=== PATIENT | female | born 1945 | race Caucasian/White ===

== ENCOUNTER 2020-01-05 07:47 | Outpatient (CLI) | payer OTHER, SELFPAY ==
--- NOTE | ~2020-01-05 | DEXA_ITS ---
Bone Density Report Name: Yomaira Ware Age: 74 Sex: Female Ethnicity: White Date of : 1945 Indication: postmenopausal; height loss; cancer; hysterectomy; Referring Provider: EWA BUCKLEY Study: Bone densitometry was performed. Exam Date: January 05, 2020 Accession number: [id number] Bone Density: Region BMD T-score Z-score Classification AP Spine (L1, L2) 1.084 1.0 3.1 Normal Femoral Neck (Left) 0.627 -2.0 -0.1 Osteopenia Total Hip (Left) 0.800 -1.2 0.5 Osteopenia Total Hip Bilateral Avg 0.789 -1.3 0.4 Osteopenia Femoral Neck (Right) 0.593 -2.3 -0.4 Osteopenia Total Hip (Right) 0.776 -1.4 0.3 Osteopenia World Health Organization criteria for BMD impression classify patients as: Normal (T-score at or above -1.0), Osteopenia (T-score between -1.0 and -2.5), or Osteoporosis (T-score at or below -2.5). 10-year Fracture Risk(1): Major Osteoporotic Fracture 13% Hip Fracture 3.2% Reported Risk Factors: [place] (), Neck BMD=0.593, BMI=31.9 (1) FRAX(R) Version 3.08. Fracture probability calculated for an untreated patient. Fracture probability may be lower if the patient has received treatment. Clinical Information Provided by Patient: Has used the following medications: Vitamin D, Calcium Has the following medical conditions: Cancer, Hysterectomy Patient maximum height was 65 Menopause Age: 52 No regular weight bearing exercise Drinks caffeinated beverages Onset of menses at age 18 Number of children 2 Impression: The patient has low bone mass, based on the Right Femoral Neck T-score. The patient has an estimated ten-year risk of hip fracture of 3.2% and an estimated ten-year risk of major fracture of 13%, based on the WHO FRAX algorithm. Discussion: BONE DENSITY IS LOW AT ONE OR MORE SKELETAL SITES. THE PATIENT'S BMD AND CLINICAL RISK FACTORS CONTRIBUTE TO THIS PATIENT'S INCREASED RISK OF FRACTURE. This patient's lowest T-score is low at one or more skeletal sites. It meets the World Health Organization's (WHO) criteria for ?low bone mass? (T-score between -1.0 and -2.5). The patient's 10-year risk of hip fracture as calculated by FRAX exceeds the threshold where pharmacological therapy is recommended by the National Osteoporosis Foundation (NOF). However, all treatment decisions require clinical judgment and consideration of individual patient factors, including patient preferences, comorbidities, previous drug use, risk factors not captured in the FRAX model (e.g., frailty, falls, vitamin D deficiency, increased bone turnover, interval significant decline in bone density) and possible under or overestimation of fracture risk by FRAX. The patient should follow a healthful lifestyle (good nutrition with adequate calcium and vitamin D, and appropriate weight-bearing exercise). Follow-Up
== END 2020-01-05 07:48 | disposition home or self-care (01) ==
LOC: ANHIMG 07:53
PROVIDERS: PCP Internal Medicine; Visit Provider Internal Medicine
DX: M85.852 Other specified disorders of bone density and structure, left thigh (principal); M85.851 Other specified disorders of bone density and structure, right thigh
CPT/HCPCS: 77080

== ENCOUNTER 2020-02-18 15:40 | IRF | payer OTHER, SELFPAY ==
--- NOTE | ~2020-02-18 | XR_ITS ---
XR skull <4V 02/21/2020 08:14 Indication: Recent skull surgery. Procedure: 3 views of the skull Comparison: No prior studies for comparison. Findings: There are postsurgical changes consistent with right parietal craniotomy. There is overlyin g staple line. No other skull defects are identified. No acute osseous abnormality. Impression: 1: Postsurgical changes consistent with previous right parietal craniotomy with overlying staple line . Reviewed, dictated and finalized at location B. Impression: 1: Postsurgical changes consistent with previous right parietal craniotomy with overlying staple line.
--- NOTE | 2020-02-18 15:55 | PC.NURSE ---
This patient, Yomaira Ware, was admitted to [facility] Room 222-02. Patient/family oriented to hospital policies and general routines including ID bracelet, bed and alarms, visiting hours, pain management, procedures, bathroom and other care routines, personal items, smoking policy, room service/diet, and visiting hours. Valuables list has been completed. Information on how to activate the Rapid Response Team has been discussed. Patient/Family are encouraged to report perceived risks to care and to ask questions if they do not understand what they are told or what they should do.
[2020-02-18 16:00] VITALS: BP 156/64; PULSE 65; RESP 20; TEMP 36.2; O2SAT 100; BMI 30.9
[2020-02-18] MEDS: ACETAMINOPHEN 325 MG TABLET 650 MG PO (19:42)
[2020-02-18] MEDS: CEPHALEXIN 500 MG CAPSULE PO (19:42)
[2020-02-18] MEDS: DEXAMETHASONE 4 MG TABLET PO (19:43)
[2020-02-18] MEDS: levETIRAcetam 500 MG TABLET PO (19:43)
[2020-02-18 20:57] VITALS: BP 145/74; PULSE 55; RESP 18; TEMP 35.9; O2SAT 90
[2020-02-19 05:37] LABS: Basophils Percent Auto 0.1 % (0.2-1.2); Hematocrit 37.1 % (37.0-47.0); Hemoglobin 12.6 g/dL (12.0-15.0); Immature Granulocyte Absolute 0.13 K/mm3 (0.00-0.031); Immature Granulocyte Percent A 1.5 % (0-0.5); Lymphocytes Absolute Auto 0.64 K/mm3 (0.9-3.2); Lymphocytes Percent Auto 7.2 % (18.3-44.2); Mean Corpuscular Hemoglobin 31.1 pg (26-34); Mean Corpuscular Volume 91.6 fl (80-100); Mean Platelet Volume 10.9 fl (7.4-10.4); Monocytes Absolute Auto 0.4 K/mm3 (0.1-0.6); Monocytes Percent Auto 4.6 % (2.6-8.5); Neutrophils Absolute Auto 7.7 K/mm3 (1.3-6.7); Neutrophils Percent Auto 86.6 % (45.5-73.1); Platelet Count Result 187 k/mm3 (150-375); Red Blood Count 4.05 M/mm3 (4.2-5.4); Red Cell Distribution Width 13.6 % (11.5-14.5); White Blood Count 8.9 K/mm3 (4.5-10.0)
[2020-02-19 05:40] VITALS: BP 120/57; PULSE 61; RESP 18; TEMP 36.4; O2SAT 96
[2020-02-19 05:54] LABS: Anion Gap 3 mmol/L (8-16); Blood Urea Nitrogen 19 mg/dL (7-17); Carbon Dioxide 30 mmol/L (22-30); Chloride 98 mmol/L (98-107); Estimated CRCL calculation 107 ml/min; Estimated Glomerular Filt Rate > 60; Glucose 109 mg/dL (65-105); Potassium 4.3 mmol/L (3.4-5.0); Sodium 131 mmol/L (137-145)
[2020-02-19] MEDS: ASCORBIC ACID 250 MG TABLET PO (08:27)
[2020-02-19] MEDS: DEXAMETHASONE 4 MG TABLET PO ×4 (08:27→20:04)
[2020-02-19] MEDS: levETIRAcetam 500 MG TABLET PO ×2 (08:27→20:04)
[2020-02-19] MEDS: CHOLECALCIFEROL 1,000 UNITS TABLET 1000 UNITS PO (08:27)
[2020-02-19] MEDS: CEPHALEXIN 500 MG CAPSULE PO ×4 (08:27→20:04)
--- NOTE | 2020-02-19 13:35 | WPDREHABHP ---
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 On February 15, 2020 she underwent a right parietal MRI guided is stereotactic craniotomy for resection of the lesion. She was placed on Decadron and Keppra for seizure prophylaxis. Postoperatively the patient has experienced acute postoperative pain, acute blood loss anemia leukocytosis, and weakness to the left biceps, triceps, and intrinsic hand muscles. The wound dressing is clean, dry, and intact. The wound is flat, and kristine intact, with no significant active drainage. Forehead and posterior parietal occipital Beasley pin hole sites without hematoma, erythema, edema, or drainage. The surgical wound is to remain open to air and the kristine are to stay in place for the next 7 to 10 days. Her pain is being managed with oral pain medications and is currently minimal, and acute blood loss anemia is stable with a hemoglobin of 14.2 , leukocytosis is related to steroid administration, and weakness will be address with intensive physical and occupational therapy. She was discharged to rehab on oral Keppra and Decadron. She will not be discharged on chemical DVT prophylaxis in the setting of a brain surgery. Therapy was initiated at the acute care facility and the patient transferred to us from [facility] on February 18, 2020. The patient has not traveled outside the [place] or head contact with someone who is ill that has traveled outside the [place] in the past 21 days. The patient has not traveled to an area of the [place] that he is experiencing known transmission of the Coronavirus and has not had close personal contact with anyone that has. The patient does not have a fever. The patient is not experiencing lower respiratory illness symptom. COVID test negative on February 13, 2020 FALLS OR SURGERIES: The patient has had major surgeries in the 100 days prior to admission. They had no falls in the past year. They had no falls with injury in the past year. PAST MEDICAL HISTORY: [] lung cancer, pulmonary emphysema, osteoporosis, brain cancer, hard of hearing and hypertension. PAST SURGICAL HISTORY: [] Hysterectomy and stereotactic radio surgery SOCIAL HISTORY: [] the patient is and retired. She quit smoking in 1996. She has 1 alcoholic drink per week, and has no illicit drug use. The patient lives independently in a 1 level house with 5 steps to enter. Patient was completely independent at baseline with no assistive device. The patient reports having family, friends, and neighbors to assist her following rehab if necessary FAMILY HISTORY: [] cervical cancer, colon cancer, and diabetes mellitus PRIOR LEVEL OF FUNCTION: Eating was [INDEPENDENT] Oral Care was [INDEPENDENT] Toileting Hygiene was [INDEPENDENT] Shower/Bathing was [INDEPENDENT] Upper Body Dressing was [INDEPENDENT] Lower Body Dressing was [INDEPENDENT] Donning/[place] Footwear was [INDEPENDENT] Rolling Left and Right was [INDEPENDENT] Sit to Lying was [INDEPENDENT] Lying to Sitting was [INDEPENDENT] Sit to Stand was [INDEPENDENT] Bed to Chair Transfers was [INDEPENDENT] Toilet Transfers was [INDEPENDENT] the patient was walking independently previously and she was able to compl
[2020-02-19 14:00] VITALS: BP 119/69; PULSE 68; RESP 16; TEMP 36.3; O2SAT 98
--- NOTE | 2020-02-19 14:01 | WPDREHABHP ---
H&P: HPI History of Present Illness Date/Time: 02/19/20 14:01 Chief complaint: Brain Dysfunction/ Non Traumatic Narrative: Yomaira Ware is a 74 year old female [facility] Social History Social History Smoking status: Former smoker Smoking end date: 06/09/97 Alcohol intake: never Substance use: never Substance use type: does not use Gender identity (if verbalized by the patient): Female Spiritual care concerns: No Meds Home Medications and Allergies Home Medications Medication Instructions Recorded Confirmed Type fluticasone propionate 50 2 spray NASAL DAILY #54.6 ml 12/30/19 12/30/19 Rx mcg/actuation nasal spray,suspension alendronate 70 mg tablet 70 mg PO WEEKLY #14 tablet 01/12/20 01/12/20 Rx Vitamin D3 Complete 02/18/20 History acetaminophen 650 mg PO Q4H PRN 02/18/20 02/18/20 History ascorbic acid (vitamin C) [Vitamin 100 mg PO DAILY 02/18/20 02/18/20 History C] cephalexin 500 mg PO QID 02/18/20 02/18/20 History cholecalciferol (vitamin D3) 25 mcg PO DAILY 02/18/20 02/18/20 History dexamethasone 4 mg PO QID 02/18/20 02/18/20 History hydrocodone-acetaminophen [[place]] 1 tablet PO Q4H PRN 02/18/20 02/18/20 History levetiracetam 500 mg PO BID 02/18/20 02/18/20 History Allergies Allergy/AdvReac Type Severity Reaction Status Date / Time No Known Allergies AdvReac Mild Verified 01/12/20 08:55 Vital Signs Vital Signs - 24 hr 02/18/20 16:00 02/18/20 20:57 02/19/20 05:40 Temperature 36.2 C L 35.9 C L 36.4 C L Pulse Rate 65 55 L 61 Respiratory Rate 20 18 18 Blood Pressure 156/64 H 145/74 H 120/57 L Pulse Oximetry 100 90 96 Exam Narrative Exam Narrative: examination revealed her to be awake alert cooperative in no obvious acute distress. She was able to relate to the physician follow the instruction appropriately and was not in any obvious discomfort. Head was normocephalic with no cranial bruit. Ear nose throat examination was normal. Neck was supple with no stiffness full range of motion. No cervical bruit no thyromegaly and no lymphadenopathy the wound was clear heart was regular with no murmur lungs were clear to auscultation with no rhonchi or crepitation abdomen was soft nontender with no organomegaly normal bowel sounds neurologically she was awake alert cooperative in no obvious acute distress was able to follow the verbal commands appropriately his speech was not dysphasic no dysarthric no dysphonic pupils were round regular reacting to light equally feels the vision were full extraocular moves are full face symmetrical tongue midline motor examination revealed her to have decreased strength in upper and lower extremities with brisk reflexes questionably upgoing plantar responses there was no evidence of ataxia or dysmetria on [id number]-to-finger she had difficulties in performing heel to knee to mg H&P: Results Labs Labs: Short CBC 02/19/20 Range/Units 05:08 WBC 8.9 (4.5-10.0) K/mm3 Hgb 12.6 (12.0-15.0) g/dL Hct 37.1 (37.0-47.0) % Plt Count 187 (150-375) k/mm3 [facility] 02/19/20 05:08 Sodium 131 L Potassium 4.3 Chloride 98 Carbon Dioxide 30 BUN 19 H Creatinine 0.40 L Glucose 109 H Calcium 8.0 L
[2020-02-19 20:47] VITALS: BP 140/76; PULSE 65; RESP 18; TEMP 35.8; O2SAT 97
[2020-02-20 06:00] VITALS: BP 143/81; PULSE 60; RESP 18; TEMP 35.8; O2SAT 99
[2020-02-20] MEDS: DEXAMETHASONE 4 MG TABLET PO ×4 (08:40→21:02)
[2020-02-20] MEDS: CEPHALEXIN 500 MG CAPSULE PO ×4 (08:40→21:02)
[2020-02-20] MEDS: ASCORBIC ACID 250 MG TABLET PO (08:40)
[2020-02-20] MEDS: levETIRAcetam 500 MG TABLET PO ×2 (08:41→21:01)
[2020-02-20] MEDS: CHOLECALCIFEROL 1,000 UNITS TABLET 1000 UNITS PO (08:41)
--- NOTE | 2020-02-20 12:05 | WPDNEURORHBP ---
Subjective Date/time seen: 02/20/20 12:05 74 years old lady admitted with known traumatic brain dysfunction in addition to the history of no alcohol intake substance abuse being a former smoker and history of metastatic carcinoma of the lung for which she has undergone craniectomy in February of 2020 she is being maintained on Keppra for the seizure prophylaxis Review of Systems Review of Systems: All systems reviewed & are unremarkable except as noted in HPI and below Functional Status Ambulation Ability Ability to Ambulate 10 Feet: Minimum Assistance X 1 Ability to Ambulate 50 Feet With 2 Turns: Contact Guard Ability to Ambulate 150 Feet: Contact Guard Ambulation Assistive Devices: Walker, Wheeled Transfers Ability Ability to Transfer In/Out of Chair: Contact Guard Exam Narrative: Exam Narrative: examination reveals her to be awake alert cooperative sitting in chair comfortable with normal and full speech heart regular with no murmur lungs clear neurological is she is awake alert able to relate to the physician has no specific complaints reflexes are unchanged and so as the general physical and neurological examination she is involved in the physical therapy and will be continued as such Objective Data Vital Signs Vital Signs: Vital Signs - 24 hr 02/19/20 14:00 02/19/20 20:47 02/20/20 06:00 Temperature 36.3 C L 35.8 C L 35.8 C L Pulse Rate 68 65 60 Respiratory Rate 16 18 18 Blood Pressure 119/69 140/76 143/81 H Pulse Oximetry 98 97 99 Intake/Output Intake/Output: Intake & Output 02/17/20 02/18/20 02/19/20 02/20/20 23:59 23:59 23:59 23:59 Intake Total 240 680 960 Balance 240 680 960 Meds/Results Medications: Active Medications Generic Name Dose Route Start Last Admin Trade Name Freq PRN Reason Stop Dose Admin Acetaminophen 650 mg 02/18/20 17:09 02/18/20 19:42 Tylenol Tablet PO 650 mg Q4H PRN Administration Pain (Scale Score 1-3) Hydrocodone Bitart/Acetaminophen 1 tab 02/18/20 17:09 02/19/20 20:04 [place] 5-325 Mg PO 1 tab Q4H PRN Administration Pain (Scale Score 7-10) Ascorbic Acid 250 mg 02/19/20 09:00 02/20/20 08:40 Vitamin C PO 03/20/20 09:01 250 mg DAILY CHRISTOPHER Administration Cephalexin HCl 500 mg 02/18/20 21:00 02/20/20 08:40 Keflex Capsule PO 02/25/20 21:01 500 mg QID CHRISTOPHER Administration Dexamethasone 4 mg 02/18/20 21:00 02/20/20 08:40 Dexamethasone Po PO 02/20/20 21:01 4 mg [facility] CHRISTOPHER Administration Fluticasone Propionate 2 spray 02/18/20 17:15 Flonase 0.05% Nasal [place] NASAL QAM PRN Nasal Congestion Levetiracetam 500 mg 02/18/20 21:00 02/20/20 08:41 Keppra Tablet PO 500 mg Q12HR CHRISTOPHER Administration Vitamin D 1,000 units 02/19/20 09:00 02/20/20 08:41 Vitamin D PO 1,000 units DAILY CHRISTOPHER Administration Progress Note: A&P Assessment and Plan (1) BPPV (benign paroxysmal positional vertigo): Code(s): H81.10 - Benign paroxysmal vertigo, unspecified ear Status: Acute (2) Colon cancer screening: Code(s): Z12.11 - Encounter for screening for malignant neoplasm of colon Status: Acute (3) Post-menopausal: Code(s): Z78.0 - Asymptomatic menopausal state Status: Acute (4) Cerebrovascular accident (CVA): Code(s): I63.9 - Cerebral infarction, unspecified Status: Acute (5) Former tobacco use: Code(s): Z87.891 - Personal history of nicotine dependence Status: Acute (6) Hearing loss: Qualifiers: Hearing loss type: unspecified Laterality: right Qualified Code(s): H91.91 - Unspecified hearing loss, right ear Code(s): H91.90 - Unspecified hearing loss, unspecified ear Status: Acute (7) Hx of cervical cancer: Code(s): Z85.41 - Personal history of malignant neoplasm of cervix uteri Status: Acute (8) Hx of colonic polyps: Code(s): Z86.010 - Personal history of colonic polyps Status
[2020-02-20 14:00] VITALS: BP 128/65; PULSE 70; RESP 16; TEMP 36.4; O2SAT 97
--- NOTE | 2020-02-20 17:07 | PC.NURSE ---
Patient c/o some numbness in left wrist and left foot/leg, states not lasting; appears very transient. Dr. Pagan notified. No visual disturbances or pain involved and stated she was having this before the surgery happened. Will continue to monitor.
--- NOTE | 2020-02-20 20:00 | PC.NURSE ---
called and spoke to Dr Sevilla regarding the dexamethasone order. instructions stated x 9 days on mar as well as in chart. mar was showing medication to complete after a total of [address] Sevilla wanted medication continued for 9 days per discharge instructions from previous hospital.
[2020-02-20 22:00] VITALS: BP 133/76; PULSE 70; RESP 20; TEMP 36.3; O2SAT 99
[2020-02-21 05:45] VITALS: BP 140/65; PULSE 57; RESP 20; TEMP 36.3; O2SAT 98
[2020-02-21] MEDS: DEXAMETHASONE 4 MG TABLET PO ×4 (08:23→20:04)
[2020-02-21] MEDS: ASCORBIC ACID 250 MG TABLET PO (08:24)
[2020-02-21] MEDS: CEPHALEXIN 500 MG CAPSULE PO ×4 (08:24→20:03)
[2020-02-21] MEDS: levETIRAcetam 500 MG TABLET PO ×2 (08:24→20:04)
[2020-02-21] MEDS: CHOLECALCIFEROL 1,000 UNITS TABLET 1000 UNITS PO (08:24)
--- NOTE | 2020-02-21 10:11 | P.PNNERE_ITS ---
Subjective Date/time seen: 02/21/20 10:11 74 years old lady with traumatic brain dysfunction and metastatic carcinoma of the lung requiring craniectomy also being maintained on Keppra for the seizure prophylaxis has no specific complaints today slept well pain is under control mood is good Review of Systems Review of Systems: All systems reviewed & are unremarkable except as noted in HPI and below Functional Status Ambulation Ability Ability to Ambulate 10 Feet: Standby Assistance Ability to Ambulate 50 Feet With 2 Turns: Standby Assistance Ability to Ambulate 150 Feet: Contact Guard Ambulation Assistive Devices: Walker, Wheeled Transfers Ability Ability to Transfer In/Out of Chair: Standby Assistance Exam Narrative: Exam Narrative: examination reveals her to be awake alert again cooperative very pleasant comfortable his speech nor dysphasic no dysarthric no dysphonic heart regular lungs clear neurological examination essentially unchanged she is walking down the coy without any discomfort Objective Data Vital Signs Vital Signs: Vital Signs - 24 hr 02/20/20 14:00 02/20/20 22:00 02/21/20 05:45 Temperature 36.4 C L 36.3 C L 36.3 C L Pulse Rate 70 70 57 L Respiratory Rate 16 20 20 Blood Pressure 128/65 133/76 140/65 Pulse Oximetry 97 99 98 Intake/Output Intake/Output: Intake & Output 02/18/20 02/19/20 02/20/20 02/21/20 23:59 23:59 23:59 23:59 Intake Total 404 400 2520 480 Balance 397 060 4046 480 Meds/Results Medications: Active Medications Generic Name Dose Route Start Last Admin Trade Name Freq PRN Reason Stop Dose Admin Acetaminophen 650 mg 02/18/20 17:09 02/18/20 19:42 Tylenol Tablet PO 650 mg Q4H PRN Administration Pain (Scale Score 1-3) Hydrocodone Bitart/Acetaminophen 1 tab 02/18/20 17:09 02/19/20 20:04 [place] 5-325 Mg PO 1 tab Q4H PRN Administration Pain (Scale Score 7-10) Ascorbic Acid 250 mg 02/19/20 09:00 02/21/20 08:24 Vitamin C PO 03/20/20 09:01 250 mg DAILY CHRISTOPHER Administration Cephalexin HCl 500 mg 02/18/20 21:00 02/21/20 08:24 Keflex Capsule PO 02/25/20 21:01 500 mg QID CHRISTOPHER Administration Dexamethasone 4 mg 02/21/20 08:00 02/21/20 08:23 Dexamethasone Po PO 02/27/20 17:01 4 mg [facility] CHRISTOPHER Administration Fluticasone Propionate 2 spray 02/18/20 17:15 Flonase 0.05% Nasal [place] NASAL QAM PRN Nasal Congestion Levetiracetam 500 mg 02/18/20 21:00 02/21/20 08:24 Keppra Tablet PO 500 mg Q12HR CHRISTOPHER Administration Vitamin D 1,000 units 02/19/20 09:00 02/21/20 08:24 Vitamin D PO 1,000 units DAILY CHRISTOPHER Administration Radiology Results: ITS Impressions Skull X-Ray 02/21/20 08:47 Impression: 1: Postsurgical changes consistent with previous right parietal craniotomy with overlying staple line. Progress Note: A&P Additional Plan continue the treatment as such
--- NOTE | 2020-02-21 11:57 | RPD ---
INDIVIDUALIZED PLAN OF CARE FOR Yomaira Ware Brief Synthesis of Pre-Admission Screen, Post-Admission Evaluation and Therapy Evaluations: The patient presents to rehab with a non-traumatic brain dysfunction of a right parietal brain lesion. Comorbidities include acute blood loss anemia, acute postoperative pain, hypertension, constipation, osteoporosis, lung cancer, and pulmonary emphysema. The complexity of the patient's medical management, nursing, and therapy needs require an inpatient rehab hospital stay with a physician-led interdisciplinary team approach. The patient?s needs will be best met in an intensive program vs. at a lower level of care. The patient requires physician services for medical oversight, management of post-op complications in setting of present comorbidities, and pain management. The patient requires nursing services for anticoagulation therapy, DVT prophylactics, infection protection, medication management and education, pressure relief, and wound care. Deficits include:ADLs, Balance, Endurance, Family Training/Education, Mobility, Pain Management, ROM, Safety, Transfers, and Strength. Business Information Consultant/Case Management for: Discharge Planning and Patient/Family Counseling Physical Therapy: 5 days per week for 90 minutes. Treatments may include: Therapeutic Exercise, Gait Training, Neuromuscular Re-education, Transfer Training, Community Reintegration, Bed Mobility, Patient/Family Education, Wheelchair Mobility Group Therapy/Concurrent Therapy Rationales: -Improve attention span during functional activities in a distracted environment. -Enhance problem solving and/or adequate judgment skills during functional activities in a distracted environment. -Promote increased safety awareness in a distracted environment to reduce fall risk with functional tasks, transfers, and ambulation to allow a more safe, self-sufficient return to the home environment. -Improve dynamic balance skills to promote safety and independence with functional activities in a distracted environment for maximum gain. Occupational Therapy: 5 days per week for 90 minutes. Treatments may include: Therapeutic Exercise, Therapeutic Activity, Cognitive Training, Self-Care Transfer Training, Community Reintegration, Home Management, Patient/Family Education, Wheelchair Mobility Training, Energy Conservation Training Group Therapy/Concurrent Therapy Rationales: -Allow therapist to observe and teach generalization and carry-over of skills learned in individual therapy. -Enhance problem solving and sequencing skills during therapeutic activities in a distracted environment. -Promote increased safety awareness in a realistic setting to reduce fall risk with functional tasks due to visual and verbal distractions. -Increase functional level with ADLs, ADL transfers and use of adaptive equipment through therapeutic activities with others while promoting safety to allow a more safe, self-sufficient return home. Medical Prognosis: Good Anticipated Length of Stay: 10 days Rehab Goals: Eating Goal: 06-Independent Oral Hygiene Goal: 06-Independent Toileting Hygiene Goal: 06-Independent Shower/Bathe Self Goal: 06-Independent Upper Body Dressing Goal: 06-Independent Lower Body Dressing Goal: 06-Independent Putting On/Taking Off Footwear Goal: 06-Independent Rolling Left and Right Goal: 06-Independent Sit to Lying Goal: 06-Independent Lying to Sitting on Side of Bed Goal: 06-Independent Sit to Stand Goal: 05-Setup or Clean Up Assistance Chair/[id number]-hf-Kfsya Transfer Goal: 06-Independent Toilet Transfer Goal: 06-Independent Car Transfer Goal: 06-Independent Walk 10' Goal: 04-Supervision or Touching Assistance Walk 50' with Two Turns Goal: 06-Independent Walk 150' Goal: 06-Independent Walk 10' on Uneven Surface Goal: 06-Independent 1 Step (Curb) Goal: 06-Independent 4 Steps Goal: 06-Independent 12 Steps Goal Score: 06-Independent Picking Up Object Goal: 06-Independent Wheel 50
[2020-02-21 12:15] VITALS: BMI 30.9
[2020-02-21 14:00] VITALS: BP 146/68; PULSE 68; RESP 20; TEMP 36.3; O2SAT 100
[2020-02-21 20:20] VITALS: BP 114/76; PULSE 71; RESP 18; TEMP 36.4; O2SAT 99
[2020-02-22 05:55] VITALS: BP 121/53; PULSE 58; RESP 18; TEMP 36.6; O2SAT 95
[2020-02-22] MEDS: ASCORBIC ACID 250 MG TABLET PO (08:34)
[2020-02-22] MEDS: CEPHALEXIN 500 MG CAPSULE PO ×4 (08:34→20:40)
[2020-02-22] MEDS: DEXAMETHASONE 4 MG TABLET PO ×4 (08:34→20:40)
[2020-02-22] MEDS: levETIRAcetam 500 MG TABLET PO ×2 (08:35→20:40)
[2020-02-22] MEDS: CHOLECALCIFEROL 1,000 UNITS TABLET 1000 UNITS PO (08:35)
--- NOTE | 2020-02-22 10:43 | WPDNEURORHBP ---
Subjective Date/time seen: 02/22/20 10:43 Interval history: this 74-year-old woman is here after having had resection of the metastatic brain lesion by the craniotomy and she is going for a follow-up appointment with the treating surgeon on February 25, 2020 at that point home will be asking him to tell us whether he wants to taper the dexamethasone or he wants to continue the present dose The patient is quite eager to [place] doing remarkably well in the physical therapy she denies any headache nausea vomiting chest pain shortness breath fever chills sore throat The patient's lung cancer was diagnosed since 2016 and she received the chemotherapy and radiation for the same. This lesion was discovered not too long the right side of the brain and for which she had a craniotomy performed by the neurosurgeon Review of Systems Review of Systems: All systems reviewed & are unremarkable except as noted in HPI and below Functional Status Ambulation Ability Ability to Ambulate 10 Feet: Independent Ability to Ambulate 50 Feet With 2 Turns: Independent Ability to Ambulate 150 Feet: Standby Assistance Ambulation Assistive Devices: Walker, Wheeled Transfers Ability Ability to Transfer In/Out of Chair: Independent Exam Const: General: comfortable and no acute distress HENMT: General nose exam: Normal nares present Mouth: Yes moist mucous membranes Other: the incision at the posterior part of the right scalp has clean and healthy and the kristine are there the no drainage noted the is no evidence of infectious process Eyes: General: appearance normal, both eyes and all related structures Neck: Neck: supple and no JVD Resp: Effort & Inspection: normal respiratory effort Auscultation: clear to auscultation bilaterally Cardio: Rate: regular rate Rhythm: regular rhythm GI: GI Palp: Yes Soft to palpation Auscultation: normal bowel sounds Skin: General skin exam: normal color and no rashes or lesions noted Neuro: Other: patient awake alert well oriented to time place and person has normal speech and language function she is quite alert quite eager to go home with subtle but present left-sided weakness and higher level balance problem needing some assistance in the activities of daily living at this point Extrem: General: normal to inspection Psych: Mental Status: mental status grossly normal Objective Data Vital Signs Vital Signs: Vital Signs - 24 hr 02/21/20 14:00 02/21/20 20:20 02/22/20 05:55 Temperature 36.3 C L 36.4 C L 36.6 C Pulse Rate 68 71 58 L Respiratory Rate 20 18 18 Blood Pressure 146/68 H 114/76 121/53 L Pulse Oximetry 100 99 95 Intake/Output Intake/Output: Intake & Output 02/19/20 02/20/20 02/21/20 02/22/20 23:59 23:59 23:59 23:59 Intake Total 680 1680 960 480 Balance 680 1680 960 480 Meds/Results Medications: Active Medications Generic Name Dose Route Start Last Admin Trade Name Freq PRN Reason Stop Dose Admin Acetaminophen 650 mg 02/18/20 17:09 02/18/20 19:42 Tylenol Tablet PO 650 mg Q4H PRN Administration Pain (Scale Score 1-3) Hydrocodone Bitart/Acetaminophen 1 tab 02/18/20 17:09 02/19/20 20:04 [place] 5-325 Mg PO 1 tab Q4H PRN Administration Pain (Scale Score 7-10) Ascorbic Acid 250 mg 02/19/20 09:00 02/22/20 08:34 Vitamin C PO 03/20/20 09:01 250 mg DAILY CHRISTOPHER Administration Cephalexin HCl 500 mg 02/18/20 21:00 02/22/20 08:34 Keflex Capsule PO 02/25/20 21:01 500 mg QID CHRISTOPHER Administration Dexamethasone 4 mg 02/21/20 08:00 02/22/20 08:34 Dexamethasone Po PO 02/27/20 17:01 4 mg [facility] CHRISTOPHER Administration Fluticasone Propionate 2 spray 02/18/20 17:15 Flonase 0.05% Nasal [place] NASAL QAM PRN Nasal Congestion Levetiracetam 500 mg 02/18/20 21:00 02/22/20 08:35 Keppra Tablet PO 500 mg Q12HR CHRISTOPHER Administration Vitamin D 1,000 units 02/19/20 09:00 02/22/20 08:35 Vitamin D PO 1,000 units DAILY CHRISTOPHER
[2020-02-22 14:00] VITALS: BP 123/74; PULSE 84; RESP 20; TEMP 36.6; O2SAT 96
[2020-02-22 21:58] VITALS: BP 138/68; PULSE 70; RESP 20; TEMP 36.8; O2SAT 100
[2020-02-23 06:00] VITALS: BP 149/70; PULSE 55; RESP 18; TEMP 36.6; O2SAT 97
--- NOTE | 2020-02-23 07:09 | PC.NURSE ---
called Dr Sevilla regarding blood pressures. blood pressures printed out for him to review per his request. will continue to monitor.
[2020-02-23] MEDS: DEXAMETHASONE 4 MG TABLET PO ×3 (07:55→18:05)
[2020-02-23] MEDS: ASCORBIC ACID 250 MG TABLET PO (07:56)
[2020-02-23] MEDS: CEPHALEXIN 500 MG CAPSULE PO ×3 (07:56→18:05)
[2020-02-23] MEDS: levETIRAcetam 500 MG TABLET PO (07:57)
[2020-02-23] MEDS: CHOLECALCIFEROL 1,000 UNITS TABLET 1000 UNITS PO (07:58)
--- NOTE | 2020-02-23 10:29 | WPDNEURORHBP ---
Subjective Date/time seen: 02/23/20 10:29 Interval history: this very pleasant 74-year-old woman is here after having had the craniotomy right parietal area for a metastatic lesion to the brain she is doing remarkably well in over rehab program and the left-sided weakness has significantly improved she is making progress she denies any headache nausea vomiting chest pain shortness of breath fever chills sore throat The blood pressure is occasionally elevated probably due to the use of dexamethasone likewise her sugars are slightly elevated probably due to the effect of the dexamethasone Review of Systems Review of Systems: All systems reviewed & are unremarkable except as noted in HPI and below Functional Status Ambulation Ability Ability to Ambulate 10 Feet: Independent Ability to Ambulate 50 Feet With 2 Turns: Independent Ability to Ambulate 150 Feet: Standby Assistance Ambulation Assistive Devices: Walker, Wheeled Transfers Ability Ability to Transfer In/Out of Chair: Independent Exam Const: General: no acute distress and in distress HENMT: General nose exam: Normal nares present Mouth: Yes moist mucous membranes Eyes: General: appearance normal, both eyes and all related structures Neck: Neck: supple and no JVD Resp: Effort & Inspection: normal respiratory effort Auscultation: clear to auscultation bilaterally Cardio: Rate: regular rate Rhythm: regular rhythm GI: GI Palp: Yes Soft to palpation Auscultation: normal bowel sounds Skin: General skin exam: normal color and no rashes or lesions noted Neuro: Other: patient is awake alert well oriented in good spirits doing fairly well and needing little assistance in the activities of daily living with improvement in the neurological deficit Extrem: General: normal to inspection Psych: Mental Status: mental status grossly normal Objective Data Vital Signs Vital Signs: Vital Signs - 24 hr 02/22/20 14:00 02/22/20 21:58 02/23/20 06:00 Temperature 36.6 C 36.8 C 36.6 C Pulse Rate 84 70 55 L Respiratory Rate 20 20 18 Blood Pressure 123/74 138/68 149/70 H Pulse Oximetry 96 100 97 Intake/Output Intake/Output: Intake & Output 02/20/20 02/21/20 02/22/20 02/23/20 23:59 23:59 23:59 23:59 Intake Total 1680 960 960 480 Balance 1680 960 960 480 Meds/Results Medications: Active Medications Generic Name Dose Route Start Last Admin Trade Name Freq PRN Reason Stop Dose Admin Acetaminophen 650 mg 02/18/20 17:09 02/18/20 19:42 Tylenol Tablet PO 650 mg Q4H PRN Administration Pain (Scale Score 1-3) Hydrocodone Bitart/Acetaminophen 1 tab 02/18/20 17:09 02/19/20 20:04 [place] 5-325 Mg PO 1 tab Q4H PRN Administration Pain (Scale Score 7-10) Ascorbic Acid 250 mg 02/19/20 09:00 02/23/20 07:56 Vitamin C PO 03/20/20 09:01 250 mg DAILY CHRISTOPHER Administration Cephalexin HCl 500 mg 02/18/20 21:00 02/23/20 07:56 Keflex Capsule PO 02/25/20 21:01 500 mg QID CHRISTOPHER Administration Dexamethasone 4 mg 02/21/20 08:00 02/23/20 07:55 Dexamethasone Po PO 02/27/20 17:01 4 mg [facility] CHRISTOPHER Administration Fluticasone Propionate 2 spray 02/18/20 17:15 Flonase 0.05% Nasal [place] NASAL QAM PRN Nasal Congestion Levetiracetam 500 mg 02/18/20 21:00 02/23/20 07:57 Keppra Tablet PO 500 mg Q12HR CHRISTOPHER Administration Vitamin D 1,000 units 02/19/20 09:00 02/23/20 07:58 Vitamin D PO 1,000 units DAILY CHRISTOPHER Administration Radiology Results: ITS Impressions Skull X-Ray 02/21/20 08:47 Impression: 1: Postsurgical changes consistent with previous right parietal craniotomy with overlying staple line. Progress Note: A&P Assessment and Plan (1) S/P craniotomy: Code(s): Z98.890 - Other specified postprocedural states Status: Acute (2) Former tobacco use: Code(s): Z87.891 - Personal history of nicotine dependence Status: Acute (3) Hearing loss: Qualifier
--- NOTE | 2020-02-23 13:18 | PCPTNOTE ---
Yomaira Ware was evaluated for a wheeled walker on 02/23/2020 by this physical therapist electrician's assistant. The wheeled walker will resolve patient's mobility limitations and will be used for ADL's within the home. The patient can safely use the wheeled walker. ?The wheeled walker will resolve the patient?s mobility deficits, including decreased endurance, strength, and balance. Sophie Pritchett, WASHTUB WORKER HELPER
[2020-02-23 14:00] VITALS: BP 143/66; PULSE 80; RESP 18; TEMP 35.8; O2SAT 98
[2020-02-23 20:39] VITALS: BP 142/51; PULSE 72; RESP 18; TEMP 36.6; O2SAT 92
[2020-02-24] MEDS: levETIRAcetam 500 MG TABLET PO ×3 (00:21→20:16)
[2020-02-24] MEDS: CEPHALEXIN 500 MG CAPSULE PO ×5 (00:21→20:16)
[2020-02-24] MEDS: DEXAMETHASONE 4 MG TABLET PO ×5 (00:21→20:16)
[2020-02-24 05:42] VITALS: BP 125/54; PULSE 57; RESP 18; TEMP 36.1; O2SAT 97
[2020-02-24] MEDS: ASCORBIC ACID 250 MG TABLET PO (08:20)
[2020-02-24] MEDS: CHOLECALCIFEROL 1,000 UNITS TABLET 1000 UNITS PO (08:21)
[2020-02-24 14:00] VITALS: BP 108/64; PULSE 70; RESP 20; TEMP 36.2; O2SAT 100
[2020-02-24 21:13] VITALS: BP 120/62; PULSE 68; RESP 20; TEMP 36.4; O2SAT 97
[2020-02-25 05:19] VITALS: BP 116/57; PULSE 58; RESP 20; TEMP 36.2; O2SAT 97
[2020-02-25] MEDS: CHOLECALCIFEROL 1,000 UNITS TABLET 1000 UNITS PO (08:30)
[2020-02-25] MEDS: ASCORBIC ACID 250 MG TABLET PO (08:30)
[2020-02-25] MEDS: DEXAMETHASONE 4 MG TABLET PO (08:30)
[2020-02-25] MEDS: CEPHALEXIN 500 MG CAPSULE PO (08:30)
[2020-02-25] MEDS: levETIRAcetam 500 MG TABLET PO (08:30)
--- NOTE | 2020-02-25 09:11 | WPDNEURORHBP ---
Subjective Date/time seen: 02/25/20 09:11 Interval history: This 74-year-old woman is going to be discharged today she has a follow-up appointment soon at her neurosurgeon's office not only to have the kristine removed but also make a decision about continuation of the present dosages of dexamethasone which I have reiterated to her many times to ask him whether he wants to handle it or her oncologist with whom she needs to make the appointment patient denies any headache nausea vomiting chest pain shortness of breath fever chills sore throat overall neurological is looking great and remarkable Review of Systems Review of Systems: All systems reviewed & are unremarkable except as noted in HPI and below Functional Status Ambulation Ability Ability to Ambulate 10 Feet: Independent Ability to Ambulate 50 Feet With 2 Turns: Independent Ability to Ambulate 150 Feet: Independent Ambulation Assistive Devices: Walker, Wheeled Transfers Ability Ability to Transfer In/Out of Chair: Independent Exam Const: General: comfortable and no acute distress HENMT: General nose exam: Normal nares present Mouth: Yes moist mucous membranes Other: the parietal incision on the right side has kristine on looks pretty clean and healthy no drainage is noted no sign of infection is noted Eyes: General: appearance normal, both eyes and all related structures Neck: Neck: supple and no JVD Resp: Effort & Inspection: normal respiratory effort Auscultation: clear to auscultation bilaterally Cardio: Rate: regular rate Rhythm: regular rhythm GI: GI Palp: Yes Soft to palpation Auscultation: normal bowel sounds Skin: General skin exam: normal color and no rashes or lesions noted Neuro: Other: patient is awake alert well oriented with full speech and language functions normal cranial examination symmetrical strength may be a tad weakness on the left side for stability she uses a walker however she feels quite comfortable check she does not have any weakness and she can be at home she lives by herself Extrem: General: normal to inspection Psych: Mental Status: mental status grossly normal Objective Data Vital Signs Vital Signs: Vital Signs - 24 hr 02/24/20 14:00 02/24/20 21:13 02/25/20 05:19 Temperature 36.2 C L 36.4 C 36.2 C L Pulse Rate 70 68 58 L Respiratory Rate 20 20 20 Blood Pressure 108/64 120/62 116/57 L Pulse Oximetry 100 97 97 Intake/Output Intake/Output: Intake & Output 02/22/20 02/23/20 02/24/20 02/25/20 23:59 23:59 23:59 23:59 Intake Total 960 1200 720 360 Balance 960 1200 720 360 Meds/Results Medications: Active Medications Generic Name Dose Route Start Last Admin Trade Name Freq PRN Reason Stop Dose Admin Acetaminophen 650 mg 02/18/20 17:09 02/18/20 19:42 Tylenol Tablet PO 650 mg Q4H PRN Administration Pain (Scale Score 1-3) Hydrocodone Bitart/Acetaminophen 1 tab 02/18/20 17:09 02/19/20 20:04 [place] 5-325 Mg PO 1 tab Q4H PRN Administration Pain (Scale Score 7-10) Ascorbic Acid 250 mg 02/19/20 09:00 02/25/20 08:30 Vitamin C PO 03/20/20 09:01 250 mg DAILY CHRISTOPHER Administration Cephalexin HCl 500 mg 02/18/20 21:00 02/25/20 08:30 Keflex Capsule PO 02/25/20 21:01 500 mg QID CHRISTOPHER Administration Dexamethasone 4 mg 02/21/20 08:00 02/25/20 08:30 Dexamethasone Po PO 02/27/20 17:01 4 mg [facility] CHRISTOPHER Administration Fluticasone Propionate 2 spray 02/18/20 17:15 Flonase 0.05% Nasal [place] NASAL QAM PRN Nasal Congestion Levetiracetam 500 mg 02/18/20 21:00 02/25/20 08:30 Keppra Tablet PO 500 mg Q12HR CHRISTOPHER Administration Vitamin D 1,000 units 02/19/20 09:00 02/25/20 08:30 Vitamin D PO 1,000 units DAILY CHRISTOPHER Administration Radiology Results: ITS Impressions Skull X-Ray 02/21/20 08:47 Impression: 1: Postsurgical changes consistent with previous right parietal craniotomy with overlying staple line. Progress Note:
--- NOTE | 2020-02-26 14:38 | PM.DS ---
DS: Admitting Diagnosis Admitting Diagnosis Admitting Diagnosis: Brain Dysfunction/ Non Traumatic DS: Discharge Diagnosis Discharge Diagnosis (1) S/P craniotomy: Code(s): Z98.890 - Other specified postprocedural states Status: Acute (2) BPPV (benign paroxysmal positional vertigo): Code(s): H81.10 - Benign paroxysmal vertigo, unspecified ear Status: Acute (3) Post-menopausal: Code(s): Z78.0 - Asymptomatic menopausal state Status: Acute (4) Former tobacco use: Code(s): Z87.891 - Personal history of nicotine dependence Status: Acute (5) Hearing loss: Qualifiers: Hearing loss type: unspecified Laterality: right Qualified Code(s): H91.91 - Unspecified hearing loss, right ear Code(s): H91.90 - Unspecified hearing loss, unspecified ear Status: Acute (6) Hx of cervical cancer: Code(s): Z85.41 - Personal history of malignant neoplasm of cervix uteri Status: Acute (7) Hx of colonic polyps: Code(s): Z86.010 - Personal history of colonic polyps Status: Acute (8) Hypovitaminosis D: Code(s): E55.9 - Vitamin D deficiency, unspecified Status: Acute (9) Malignant neoplasm of upper lobe, left bronchus or lung: Code(s): C34.12 - Malignant neoplasm of upper lobe, left bronchus or lung Status: Acute (10) Metastatic cancer to brain: Code(s): C79.31 - Secondary malignant neoplasm of brain Status: Acute (11) Non-small cell cancer of left lung: Code(s): C34.92 - Malignant neoplasm of unspecified part of left bronchus or lung Status: Acute (12) Osteopenia of multiple sites: Code(s): M85.89 - Other specified disorders of bone density and structure, multiple sites Status: Acute (13) Pulmonary emphysema: Qualifiers: Emphysema type: unspecified Qualified Code(s): J43.9 - Emphysema, unspecified Code(s): J43.9 - Emphysema, unspecified Status: Acute DS: Summary Hospital Course Reason for hospitalization: this pleasant 74-year-old was admitted because the status post craniotomy for the metastatic lesion to the right side of the brain she did remarkably well the craniotomy site was very well healed and the patient had the appointment on the day of discharge and will check with the neurosurgeon about the continuation and for how long the dexamethasone therapy Hospital Course: patient received the PT OT and speech and was able to achieve the following independent measures eating independent, oral hygiene independent, toileting independent, bathing independent, upper body dressing independent, lower body dressing independent, footwear independent, rolling in bed independent, sitting to lying independent, lying to sitting independent, [id number] independent, chair transfers independent, toilet transfers independent, car transfers independent, walking 10 feet independent, walking 50 feet with turns independent, walking 50 feet 322 turns independent, walking 150 feet independent, walking 10 feet uneven surfaces independent, carb or step independent, 4 steps independent, 12 steps independent, [place] of object independent, wheelchair 50 feet not applicable wheelchair 150 feet not applicable Time Spent with Patient Time attestation: Total time spent providing and/or coordinating discharge services: Exam Const: General: comfortable and no acute distress HENMT: General nose exam: Normal nares present Mouth: Yes dry mucous membranes Other: the craniotomy site on the right parietal area is clean and healthy Eyes: General: appearance normal, both eyes and all related structures Neck: Neck: supple and no JVD Resp: Effort & Inspection: normal respiratory effort Auscultation: clear to auscultation bilaterally Cardio: Rate: regular rate Rhythm: regular rhythm GI: GI Palp: Yes Soft to palpation Auscultation: normal bowel sounds Skin: General skin exam: normal color and
== END 2020-02-25 10:10 | disposition home health service (06) | DRG 949 ==
PROVIDERS: Admitting Provider Psychiatry & Neurology Neurology; PCP Internal Medicine; Visit Provider Psychiatry & Neurology Neurology
DX: Z48.811 Encounter for surgical aftercare following surgery on the nervous system (principal); C79.31 Secondary malignant neoplasm of brain; C34.12 Malignant neoplasm of upper lobe, left bronchus or lung; G81.94 Hemiplegia, unspecified affecting left nondominant side; E55.9 Vitamin D deficiency, unspecified; H91.91 Unspecified hearing loss, right ear; H81.10 Benign paroxysmal vertigo, unspecified ear; I10 Essential (primary) hypertension; J43.8 Other emphysema; M62.81 Muscle weakness (generalized); M85.89 Other specified disorders of bone density and structure, multiple sites; M81.0 Age-related osteoporosis without current pathological fracture; Z87.891 Personal history of nicotine dependence; Z85.41 Personal history of malignant neoplasm of cervix uteri
CPT/HCPCS: 36415; 70250; 80048; 85025; 97110; 97116; 97161; 97166; 97530; 97535; A9270; J8540

== ENCOUNTER 2020-06-13 09:13 | Outpatient (NON) | payer OTHER, SELFPAY ==
[2020-06-13 09:44] LABS: Add Urine Microscopic? NO; Appearance Urine Clear (Clear); Bilirubin Urine Negative (Negative); Blood Urine Negative (Negative); Color Urine Straw (Yellow); Glucose Urine UA Negative (Negative); Ketones Urine Negative (Negative); Leukocyte Esterase Ur Negative LEU/UL (Negative); Nitrate Urine Negative (Negative); Protein Urine Negative (Negative); Urobilinogen Urine Negative mg/dL (<2.0)
== END 2020-06-13 09:14 ==
LOC: ANHLAB 09:13
PROVIDERS: PCP Internal Medicine; Visit Provider Internal Medicine
DX: R30.0 Dysuria (principal)
CPT/HCPCS: 81003

== ENCOUNTER → 2020-08-26 01:22 | Outpatient (CLI) | payer OTHER, SELFPAY ==
[2020-08-26 19:12] LABS: SARS-CoV-2 RNA PCR Negative
== END ==
PROVIDERS: PCP Internal Medicine; Visit Provider Internal Medicine Gastroenterology
DX: Z01.812 Encounter for preprocedural laboratory examination (principal); Z20.822 Contact with and (suspected) exposure to COVID-19
CPT/HCPCS: C9803; U0003; U0005

== ENCOUNTER 2020-08-29 00:25 | Day surgery (SDC) | payer OTHER, SELFPAY ==
[2020-08-16 12:42] VITALS: BMI 30.5
[2020-08-29 08:32] VITALS: BP 137/83; PULSE 84; RESP 16; TEMP 36.1; O2SAT 95; BMI 30.3
[2020-08-29] MEDS: LACTATED RINGERS 1,000 ML 150 ML IV CONT (08:42)
--- NOTE | 2020-08-29 09:01 | WPDANESEPPF ---
Anes - Initial Pre Proc Eval Procedure: Operation Date: 08/29/20 10:00 Proposed Procedures p Screening Colonoscopy - Luis Rodrigues MD Date/Time: 08/29/20 09:01 Surgeon: Luis Rodrigues MD Pre Op Diagnosis: neoplasm screening Patient Data Age: 75 Gender: F Height: 5 ft 5 in Weight: 82.6 kg Last Vital Signs Temp 97 F L 08/29/20 08:32 Pulse 84 08/29/20 08:32 Resp 16 08/29/20 08:32 BP 137/83 08/29/20 08:32 Pulse Ox 95 08/29/20 08:32 Allergies Allergy/AdvReac Type Severity Reaction Status Date / Time No Known Allergies Allergy Verified 08/29/20 08:31 Home Medications Medication Instructions Recorded Confirmed Type Vitamin C 100 mg PO DAILY 02/18/20 08/29/20 History acetaminophen 650 mg PO Q4H PRN 02/18/20 08/29/20 History cholecalciferol (vitamin D3) 25 mcg PO DAILY #30 tablet 02/25/20 08/29/20 Rx rosuvastatin 5 mg tablet 5 mg PO DAILY #30 tablet 07/11/20 08/29/20 Rx Patient hx anesthesia problems: none Family hx anesthesia problems: none PMFSH Past Medical History Medical History (Updated 08/29/20 @ 09:00 by Josue Bailon MD) Dyslipidemia Malignant neoplasm of upper lobe, left bronchus or lung Pulmonary emphysema Family History Family History Mother Family history of malignant neoplasm of cervix Social History Social History Smoking packs per day: 1.5 Smoking cigarettes per day: 30.0 Smoking status: Former smoker Tobacco type: cigarettes Smoking end date: 06/09/97 Alcohol intake: never Alcohol use details: 2X MONTH Substance use: never Substance use type: does not use Living arrangements: alone Gender identity (if verbalized by the patient): Female Spiritual care concerns: No Anes - Eval Final PreProcedure Day of Procedure 08/29/20 09:01 Patient weight: overweight Heart: regular rate and rhythm Lungs: clear to auscultation Airway: Mallampati scale class II Neurological: alert and oriented Last oral intake: >/= 8 hours ASA classification: III Emergent: no Anesthetic plan: proceed Anesthesia type and monitoring: general GIVS and standard monitoring Informed Consent: The patient's anesthetic plan and its attendant risks and benefits were discussed with the patient/family/POA. Questions were solicited and answers provided to the satisfaction of the patient/family/POA.
--- NOTE | 2020-08-29 09:23 | PM.HPGS ---
History of Present Illness History of Present Illness Consent: Risks, benefits, and alternatives have been discussed and questions answered. Patient agrees to proceed with procedure. Chief complaint: neoplasm screening Narrative: Yomaira Ware is a 75 year old female referred for colon cancer screening. She has a history of polyps Review of Systems Review of Systems: All systems reviewed & are unremarkable except as noted in HPI and below PMFSH Past Medical History Medical History Dyslipidemia Malignant neoplasm of upper lobe, left bronchus or lung Pulmonary emphysema Family History Family History Mother Family history of malignant neoplasm of cervix Social History Social History Smoking packs per day: 1.5 Smoking cigarettes per day: 30.0 Smoking status: Former smoker Tobacco type: cigarettes Smoking end date: 06/09/97 Alcohol intake: never Alcohol use details: 2X MONTH Substance use: never Substance use type: does not use Living arrangements: alone Gender identity (if verbalized by the patient): Female Spiritual care concerns: No Meds Home Medications and Allergies Home Medications Medication Instructions Recorded Confirmed Type Vitamin C 100 mg PO DAILY 02/18/20 08/29/20 History acetaminophen 650 mg PO Q4H PRN 02/18/20 08/29/20 History cholecalciferol (vitamin D3) 25 mcg PO DAILY #30 tablet 02/25/20 08/29/20 Rx rosuvastatin 5 mg tablet 5 mg PO DAILY #30 tablet 07/11/20 08/29/20 Rx Allergies Allergy/AdvReac Type Severity Reaction Status Date / Time No Known Allergies Allergy Verified 08/29/20 08:31 Vital Signs Vital Signs - 24 hr 08/29/20 08:32 Temperature 36.1 C L Pulse Rate 84 Respiratory Rate 16 Blood Pressure 137/83 Pulse Oximetry 95 Exam Resp: Auscultation: clear to auscultation bilaterally Cardio: Rate: regular rate Rhythm: regular rhythm GI: GI Palp: Yes Soft to palpation and No Tenderness to palpation present (GI) Assessment and Plan Assessment and plan (1) Colon cancer screening: Code(s): Z12.11 - Encounter for screening for malignant neoplasm of colon Status: Acute Assessment and Plan: Colonoscopy with possible biopsy or polypectomy or cautery or injection of substances.
[2020-08-29 10:13] VITALS: BP 109/73; PULSE 74; RESP 18; O2SAT 98
[2020-08-29 10:23] VITALS: BP 112/73; PULSE 72; RESP 20; O2SAT 100
[2020-08-29 10:33] VITALS: BP 113/76; PULSE 68; RESP 16; O2SAT 98
[2020-08-29 10:43] VITALS: BP 123/74; PULSE 70; RESP 20; O2SAT 99
== END 2020-08-29 10:49 | disposition home or self-care (01) ==
PROVIDERS: PCP Internal Medicine; Visit Provider Internal Medicine Gastroenterology
PROC: 0DJD8ZZ Inspection of Lower Intestinal Tract, Via Natural or Artificial Opening Endoscopic (ICD-10-PCS; CPT 45378; principal; 2020-08-29 10:00)
DX: Z12.11 Encounter for screening for malignant neoplasm of colon (principal); D12.3 Benign neoplasm of transverse colon; K57.30 Diverticulosis of large intestine without perforation or abscess without bleeding; E78.5 Hyperlipidemia, unspecified; J43.9 Emphysema, unspecified; Z87.891 Personal history of nicotine dependence; Z85.118 Personal history of other malignant neoplasm of bronchus and lung
CPT/HCPCS: 45380; 88305; C9803; J7120; U0003; U0005

== ENCOUNTER → 2020-10-27 08:57 | Outpatient (CLI) | payer OTHER, SELFPAY ==
--- NOTE | ~2020-10-27 | XR_ITS ---
EXAMINATION: XR shoulder LT min 2V EXAM DATE: 10/27/2020 09:31 INDICATION: M75.42 - Impingement syndrome of left shoulder. TECHNIQUE: The following left shoulder projections obtained: frontal projection with internal rotatio n, frontal projection with external rotation, Grashey, and axillary (4+ views). There is no prior st udy for comparison. FINDINGS: There is rather large region of left apical pleural capping, thickening of the pleura suspe cted. This may be what is causing prominence to the bone density of the left 2nd and 3rd ribs, but re commend chest CT without contrast for further evaluation, to exclude possibility of cancer. No evidence of left shoulder rotator cuff calcific tendinosis. There is mild glenohumeral joint, mil d acromioclavicular joint primary osteoarthritis. There are no acute fractures identified. IMPRESSION: 1. Left apical capping, pleural thickening; recommend chest CT without contrast for further evaluati on. 2. Mild left shoulder osteoarthritis. Reviewed, dictated and finalized at location A. IMPRESSION: 1. Left apical capping, pleural thickening; recommend chest CT without contras t for further evaluation. 2. Mild left shoulder osteoarthritis.
--- NOTE | ~2020-10-27 | XR_ITS ---
[id number] DATE: 10/27/2020 09:31 INDICATION: Cervical radiculopathy TECHNIQUE: AP, open-mouth, lateral, swimmer views COMPARISON: None FINDINGS: C1 and C2 are normally aligned and the odontoid process is intact. Mild degenerative disc disease at C4-5 and C5-6. No fracture or dislocation or locked facet or prevertebral soft tissue swelling. Osteopenia. IMPRESSION: Mild degenerative disc disease at C4-5 and C5-6 Osteopenia Reviewed, dictated and finalized at [facility]. Reviewed, dictated and finalized at location B.
== END ==
PROVIDERS: PCP Internal Medicine; Visit Provider Internal Medicine
DX: M54.12 Radiculopathy, cervical region (principal); M75.42 Impingement syndrome of left shoulder; M19.012 Primary osteoarthritis, left shoulder; M85.88 Other specified disorders of bone density and structure, other site
CPT/HCPCS: 72040; 73030

== ENCOUNTER 2020-12-15 16:48 | IRF | payer OTHER, SELFPAY ==
--- NOTE | 2020-12-15 16:45 | ADMGEN ---
This patient, Yomaira Ware, was admitted to [facility] Room 223-02. Patient/family oriented to hospital policies and general routines including ID bracelet, bed and alarms, visiting hours, pain management, procedures, bathroom and other care routines, personal items, smoking policy, room service/diet, and visiting hours. Information on how to activate the Rapid Response Team has been discussed. Patient/Family are encouraged to report perceived risks to care and to ask questions if they do not understand what they are told or what they should do.
[2020-12-15 16:49] VITALS: BP 125/67; PULSE 68; RESP 18; TEMP 36.1; O2SAT 98
--- NOTE | 2020-12-15 17:27 | WPDREHABHP ---
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 This was followed by PRESIDENT [employer]MO recurrence that was treated with WBRT in December of 2017. This was followed by an episode of left arm weakness with imaging showing increased right parietal lesion status post MRI guided stereotactic right parietal craniotomy and resection on 02/15/2020. Patient presented to the emergency department at [facility] with complaints of acute onset of right-sided facial droop, slurred speech, expressive aphasia. Symptoms resolved. Imaging revealed increased size of left frontal lesion. Keppra was initiated and patient will remain on 1 g b.i.d. with seizure precautions. On 12/12/2020 the patient underwent an MRI guided stereotactic left frontal craniotomy and resection of left frontal tumor. Preliminary pathology consistent with radiation necrosis. Patient was placed on amlodipine 5 mg for blood pressure management with goals of systolic blood pressure less than 140. At time of transfer this was discontinued per my discussion with the hospitalist nurse practitioner. [phone] . I will continue to monitor the need of restarting the amlodipine. Patient is medically stable for discharge per Neurosurgery. Patient will be admitted to the rehab unit at [facility] on 12/15/2020 she will continue on a dexamethasone taper 2 mg b.i.d. x2 days then 2 mg daily x2 days and then stop on 12/19. Patient is to have no anticoagulation. Arriaga was discontinued. Surgical drain was discontinued on postop day 3. Patient has postop restrictions of lifting nothing greater than 10 lb Hospital course: patient experienced postsurgical complications included left frontal headache, postop pain, dysarthria, cognitive decline, dizziness with sitting, hyperglycemia, hypertension, and constipation. Patient demonstrates a left pronator drift. Transfers are at Min assist. Patri gait is Min assist with a 2 wheeled walker. Lower extremity dressing is Min to moderate assistance. Bathing is Min to moderate assistance. Toileting is Min to moderate assistance. Grooming is setup. Eating a setup. Upper body dressing is minimal assistance. Therapy was initiated at the acute care facility and the patient transferred to us from [facility] on 12/15/2020 FALLS OR SURGERIES: the patient has had major surgery in the last 100 days. The patient has had no falls nor injuries from falls in the past year. PRIOR LEVEL OF FUNCTION: Eating was [INDEPENDENT] Oral Care was [INDEPENDENT] Toileting Hygiene was [INDEPENDENT] Shower/Bathing was [INDEPENDENT] Upper Body Dressing was [INDEPENDENT] Lower Body Dressing was [INDEPENDENT] Donning/[place] Footwear was [INDEPENDENT] Rolling Left and Right was [INDEPENDENT] Sit to Lying was [INDEPENDENT] Lying to Sitting was [INDEPENDENT] Sit to Stand was [INDEPENDENT] Bed to Chair Transfers was [INDEPENDENT] Toilet Transfers was [INDEPENDENT] Walking was [INDEPENDENT] [>500 feet] with [NO DEVICE] Wheelchair Mobility was [NOT APPLICABLE PRIOR TO ADMISSION] Stairs were [INDEPENDENT] CURRENT LEVEL OF FUNCTION: Eating was [SET UP ONLY] Oral Care was [SET UP ONLY] To
[2020-12-15 20:00] VITALS: PULSE 68; RESP 18; O2SAT 98
[2020-12-15] MEDS: levETIRAcetam 500 MG TABLET 1000 MG PO (20:07)
[2020-12-15] MEDS: DEXAMETHASONE 2 MG TABLET PO (20:07)
[2020-12-15 21:35] VITALS: BMI 30.8
[2020-12-15 22:00] VITALS: BP 126/69; PULSE 60; RESP 18; TEMP 36.1; O2SAT 98
[2020-12-16 04:58] LABS: Hematocrit 34.1 % (37.0-47.0); Hemoglobin 11.6 g/dL (12.0-15.0); Immature Granulocyte Absolute 0.07 K/mm3 (0.00-0.031); Lymphocytes Absolute Auto 1.14 K/mm3 (0.9-3.2); Mean Corpuscular Hemoglobin 31.2 pg (26-34); Mean Corpuscular Volume 91.7 fl (80-100); Mean Platelet Volume 10.9 fl (7.4-10.4); Monocytes Absolute Auto 0.5 K/mm3 (0.1-0.6); Monocytes Percent Auto 6.7 % (2.6-8.5); Neutrophils Percent Auto 75.3 % (45.5-73.1); Platelet Count Result 196 k/mm3 (150-375); Red Blood Count 3.72 M/mm3 (4.2-5.4); Red Cell Distribution Width 13.1 % (11.5-14.5); White Blood Count 6.7 K/mm3 (4.5-10.0)
[2020-12-16 05:10] LABS: Alanine Aminotransferase 64 U/L (4-35); Albumin Level 3.6 g/dL (3.5-5.1); Alkaline Phosphatase 47 U/L (38-126); Anion Gap 8 mmol/L (8-16); Aspartate Amino Transferase 45 U/L (14-36); Bilirubin,Total 0.4 mg/dL (0.2-1.3); Blood Urea Nitrogen 19 mg/dL (7-17); Calcium 8.8 mg/dL (8.4-10.2); Carbon Dioxide 27 mmol/L (22-30); Chloride 101 mmol/L (98-107); Estimated CRCL calculation 86 ml/min; Estimated Glomerular Filt Rate > 60; Glucose 100 mg/dL (65-105); Potassium 4.2 mmol/L (3.4-5.0); Sodium 136 mmol/L (137-145)
[2020-12-16 05:35] VITALS: BP 135/69; PULSE 65; RESP 18; TEMP 36.1; O2SAT 97
[2020-12-16] MEDS: DEXAMETHASONE 2 MG TABLET PO ×2 (08:33→20:49)
[2020-12-16] MEDS: ROSUVASTATIN 5 MG TABLET PO (08:33)
[2020-12-16] MEDS: levETIRAcetam 500 MG TABLET 1000 MG PO ×2 (08:33→20:49)
[2020-12-16] MEDS: SENNA/DOCUSATE SODIUM TABLET 1 TAB PO ×2 (08:33→20:49)
[2020-12-16] MEDS: CHOLECALCIFEROL 1,000 UNITS TABLET 1000 UNITS BY MOUTH (08:33)
[2020-12-16] MEDS: traMADol HCL (*CRX) 50 MG TABLET PO (08:40)
--- NOTE | 2020-12-16 09:56 | WPDNEURORHBP ---
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 This was followed by an episode of left arm weakness with imaging showing increased right parietal lesion status post MRI guided stereotactic right parietal craniotomy and resection on 02/15/2020. Patient presented to the emergency department at [facility] with complaints of acute onset of right-sided facial droop, slurred speech, expressive aphasia. Symptoms resolved. Imaging revealed increased size of left frontal lesion. Keppra was initiated and patient will remain on 1 g b.i.d. with seizure precautions. On 12/12/2020 the patient underwent an MRI guided stereotactic left frontal craniotomy and resection of left frontal tumor. Preliminary pathology consistent with radiation necrosis. Patient was placed on amlodipine 5 mg for blood pressure management with goals of systolic blood pressure less than 140. At time of transfer this was discontinued per my discussion with the hospitalist nurse practitioner. [phone] . I will continue to monitor the need of restarting the amlodipine. Patient is medically stable for discharge per Neurosurgery. Patient will be admitted to the rehab unit at [facility] on 12/15/2020 she will continue on a dexamethasone taper 2 mg b.i.d. x2 days then 2 mg daily x2 days and then stop on 12/19. Patient is to have no anticoagulation. Arriaga was discontinued. Surgical drain was discontinued on postop day 3. Patient has postop restrictions of lifting nothing greater than 10 lb Hospital course: patient experienced postsurgical complications included left frontal headache, postop pain, dysarthria, cognitive decline, dizziness with sitting, hyperglycemia, hypertension, and constipation. Patient demonstrates a left pronator drift. Transfers are at Min assist. Patri gait is Min assist with a 2 wheeled walker. Lower extremity dressing is Min to moderate assistance. Bathing is Min to moderate assistance. Toileting is Min to moderate assistance. Grooming is setup. Eating a setup. Upper body dressing is minimal assistance. Therapy was initiated at the acute care facility and the patient transferred to us from [facility] on 12/15/2020 12/16/20 patient complains of incisional pain. Patient is on tramadol 100 mg and 50 mg p.r.n.. Will add Tylenol p.r.n.. Patient admits to urinary frequency and stress incontinence. Appetite is good. Patient voices no other complaints. review of morning labs reveal mild anemia, mild hyponatremia, mild transaminitis. Patient will require ongoing monitoring and repeat labs to be drawn on Friday. Review of Systems Review of Systems: All systems reviewed & are unremarkable except as noted in HPI and below Functional Status Transfers Ability Ability to Transfer In/Out of Chair: Standby Assistance Exam Narrative: Exam Narrative: patient is in no acute distress. Head reveals dressing stapled to head on the left temporal area. External ocular muscles are intact. Pupils are equal and reactive light and accommodation. Speech is mildly dysarthric. Patient also demonstrates word-finding deficits. Tongue is
[2020-12-16] MEDS: ASCORBIC ACID 125 MG TABLET PO (10:00)
[2020-12-16] MEDS: MULTIVITAMINS THERAPEUTIC TAB (*BKC) 1 TABLET PO (10:00)
--- NOTE | 2020-12-16 13:17 | STIPEVAL ---
Thank you for referring Yomaira Ware to [facility].? The patient is scheduled to be seen for therapy? 5-7x/week for 2 weeks. Please review, sign, date and return this plan of care LAN. I agree with and certify that the following plan of care is medically necessary. Referring Physician Date Admitting Provider: Merced Tejada DO Attending Provider: Merced Tejada DO Referring Provider: MEERA Inpatient Evaluation Start: 12/16/20 12:30 Freq: Status: Active Protocol: Document 12/16/20 11:00 NRM (Rec: 12/16/20 13:16 NRM [id number]) Therapy Assessment Status Assessment Status Assessment Status Evaluation Prior Level of Function Activity Level (Last 3 Months) Activity of Daily Living Ability Needs Some Help Functional Cognition (Planning, Shopping Independent , Taking Medications) Cooking Yes Cleaning Yes Laundry Yes Shopping Yes Driving Yes Home Setting Home Type House,Multiple Levels Living Situation Alone Support Available Neighbor/Friend Support Eating Activities of Daily Living None Devices Prior Swallow Level Prior Intake Method Oral Prior Diet Regular (Level 7 Diet) Prior Liquid Consistency Thin (Level 0 Diet) Prior Cognition/Communication Prior Communication Level No Impairment Prior Cognitive Function Memory Impaired Comments Additional Prior Level of Function Patient reported having many Comments friends and sabianism community that occasionally assist with grocery shopping. Pain Assessment Timing of Pain Assessment Timing of Pain Assessment Assessment Self Report Self Report Pain Level 0 Pain Score Pain Score 0: Self Report Cognitive Evaluation Attention Assessment Sustained Attention Overall Attention Ability No Impairment Orientation/Memory Assessment Spatial/Environmental Orientation 100 Query Text:% Accuracy Overall Orientation and Memory Moderate Deficits Orientation/Memory Comments Patient demonstrated adequate remote memory and orientation. The patient presented with moderate deficits in immediate and recent memory as evidenced by difficulty remembering various tasks and requiring multiple repetitions . Problem Solving Simple Problem Solving: Percent of 80 Accuracy 0-100 (%) Kait
[2020-12-16 14:00] VITALS: BP 109/62; PULSE 69; RESP 18; TEMP 36; O2SAT 95
[2020-12-16 21:38] VITALS: BP 136/76; PULSE 60; RESP 18; TEMP 36; O2SAT 96
[2020-12-17 06:00] VITALS: BP 119/70; PULSE 60; RESP 18; TEMP 36; O2SAT 99
[2020-12-17] MEDS: CHOLECALCIFEROL 1,000 UNITS TABLET 1000 UNITS BY MOUTH (07:52)
[2020-12-17] MEDS: MULTIVITAMINS THERAPEUTIC TAB (*BKC) 1 TABLET PO (07:52)
[2020-12-17] MEDS: ASCORBIC ACID 125 MG TABLET PO (07:52)
[2020-12-17] MEDS: levETIRAcetam 500 MG TABLET 1000 MG PO ×2 (07:53→21:05)
[2020-12-17] MEDS: ROSUVASTATIN 5 MG TABLET PO (07:53)
[2020-12-17] MEDS: DEXAMETHASONE 2 MG TABLET PO (07:53)
[2020-12-17 14:00] VITALS: BP 104/66; PULSE 75; RESP 20; TEMP 35.9; O2SAT 99
[2020-12-17] MEDS: traMADol HCL (*CRX) 50 MG TABLET PO (15:58)
--- NOTE | 2020-12-17 16:21 | WPDNEURORHBP ---
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 This was followed by an episode of left arm weakness with imaging showing increased right parietal lesion status post MRI guided stereotactic right parietal craniotomy and resection on 02/15/2020. Patient presented to the emergency department at [facility] with complaints of acute onset of right-sided facial droop, slurred speech, expressive aphasia. Symptoms resolved. Imaging revealed increased size of left frontal lesion. Keppra was initiated and patient will remain on 1 g b.i.d. with seizure precautions. On 12/12/2020 the patient underwent an MRI guided stereotactic left frontal craniotomy and resection of left frontal tumor. Preliminary pathology consistent with radiation necrosis. Patient was placed on amlodipine 5 mg for blood pressure management with goals of systolic blood pressure less than 140. At time of transfer this was discontinued per my discussion with the hospitalist nurse practitioner. [phone] . I will continue to monitor the need of restarting the amlodipine. Patient is medically stable for discharge per Neurosurgery. Patient will be admitted to the rehab unit at [facility] on 12/15/2020 she will continue on a dexamethasone taper 2 mg b.i.d. x2 days then 2 mg daily x2 days and then stop on 12/19. Patient is to have no anticoagulation. Arriaga was discontinued. Surgical drain was discontinued on postop day 3. Patient has postop restrictions of lifting nothing greater than 10 lb Hospital course: patient experienced postsurgical complications included left frontal headache, postop pain, dysarthria, cognitive decline, dizziness with sitting, hyperglycemia, hypertension, and constipation. Patient demonstrates a left pronator drift. Transfers are at Min assist. Patri gait is Min assist with a 2 wheeled walker. Lower extremity dressing is Min to moderate assistance. Bathing is Min to moderate assistance. Toileting is Min to moderate assistance. Grooming is setup. Eating a setup. Upper body dressing is minimal assistance. Therapy was initiated at the acute care facility and the patient transferred to us from [facility] on 12/15/2020 12/16/20 patient complains of incisional pain. Patient is on tramadol 100 mg and 50 mg p.r.n.. Will add Tylenol p.r.n.. Patient admits to urinary frequency and stress incontinence. Appetite is good. Patient voices no other complaints. review of morning labs reveal mild anemia, mild hyponatremia, mild transaminitis. Patient will require ongoing monitoring and repeat labs to be drawn on Friday. 12/17/20 Patient complains of temporal headache. Appetite is good. Patient admits to increase speech intelligibility. Review of Systems Review of Systems: All systems reviewed & are unremarkable except as noted in HPI and below Functional Status Ambulation Ability Ability to Ambulate 10 Feet: Contact Guard Ability to Ambulate 50 Feet With 2 Turns: Contact Guard Ability to Ambulate 150 Feet: Contact Guard Ambulation Assistive Devices: None Transfers Ability Ability to Transfer In/Out of Chair: Standby Assistance
[2020-12-18 05:17] LABS: Basophils Percent Auto 0.1 % (0.2-1.2); Eosinophils Absolute Auto 0.1 K/mm3 (0-0.3); Eosinophils Percent Auto 1.1 % (0-4.4); Hemoglobin 12.1 g/dL (12.0-15.0); Immature Granulocyte Absolute 0.12 K/mm3 (0.00-0.031); Immature Granulocyte Percent A 1.7 % (0-0.5); Lymphocytes Absolute Auto 2.17 K/mm3 (0.9-3.2); Mean Corpuscular HGB Conc 32.7 g/dl (32-36); Mean Corpuscular Hemoglobin 30.9 pg (26-34); Mean Corpuscular Volume 94.4 fl (80-100); Mean Platelet Volume 10.8 fl (7.4-10.4); Monocytes Absolute Auto 0.6 K/mm3 (0.1-0.6); Neutrophils Absolute Auto 4.1 K/mm3 (1.3-6.7); Neutrophils Percent Auto 58.1 % (45.5-73.1); Platelet Count Result 192 k/mm3 (150-375); Red Blood Count 3.92 M/mm3 (4.2-5.4); Red Cell Distribution Width 13.1 % (11.5-14.5)
[2020-12-18 05:26] LABS: Alanine Aminotransferase 60 U/L (4-35); Albumin Level 3.4 g/dL (3.5-5.1); Alkaline Phosphatase 51 U/L (38-126); Anion Gap 6 mmol/L (8-16); Aspartate Amino Transferase 30 U/L (14-36); Bilirubin,Total 0.4 mg/dL (0.2-1.3); Blood Urea Nitrogen 16 mg/dL (7-17); Calcium 8.9 mg/dL (8.4-10.2); Carbon Dioxide 31 mmol/L (22-30); Chloride 98 mmol/L (98-107); Estimated CRCL calculation 73 ml/min; Estimated Glomerular Filt Rate > 60; Glucose 81 mg/dL (65-105); Potassium 3.7 mmol/L (3.4-5.0); Sodium 135 mmol/L (137-145)
[2020-12-18 06:00] VITALS: BP 123/69; PULSE 55; RESP 20; TEMP 36.1; O2SAT 99
[2020-12-18 08:00] VITALS: PULSE 55; RESP 20; O2SAT 99
[2020-12-18] MEDS: ROSUVASTATIN 5 MG TABLET PO (08:32)
[2020-12-18] MEDS: CHOLECALCIFEROL 1,000 UNITS TABLET 1000 UNITS BY MOUTH (08:32)
[2020-12-18] MEDS: ASCORBIC ACID 125 MG TABLET PO (08:32)
[2020-12-18] MEDS: MULTIVITAMINS THERAPEUTIC TAB (*BKC) 1 TABLET PO (08:32)
[2020-12-18] MEDS: DEXAMETHASONE 2 MG TABLET PO (08:32)
[2020-12-18] MEDS: levETIRAcetam 500 MG TABLET 1000 MG PO ×2 (08:32→20:51)
[2020-12-18 14:00] VITALS: PULSE 73; RESP 18; TEMP 36.2; O2SAT 98
--- NOTE | 2020-12-18 14:59 | WPDNEURORHBP ---
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 This was followed by DEL[employer] FOOD recurrence that was treated with WBRT in December of 2017. This was followed by an episode of left arm weakness with imaging showing increased right parietal lesion status post MRI guided stereotactic right parietal craniotomy and resection on 02/15/2020. Patient presented to the emergency department at [facility] with complaints of acute onset of right-sided facial droop, slurred speech, expressive aphasia. Symptoms resolved. Imaging revealed increased size of left frontal lesion. Keppra was initiated and patient will remain on 1 g b.i.d. with seizure precautions. On 12/12/2020 the patient underwent an MRI guided stereotactic left frontal craniotomy and resection of left frontal tumor. Preliminary pathology consistent with radiation necrosis. Patient was placed on amlodipine 5 mg for blood pressure management with goals of systolic blood pressure less than 140. At time of transfer this was discontinued per my discussion with the hospitalist nurse practitioner. [phone] . I will continue to monitor the need of restarting the amlodipine. Patient is medically stable for discharge per Neurosurgery. Patient will be admitted to the rehab unit at [facility] on 12/15/2020 she will continue on a dexamethasone taper 2 mg b.i.d. x2 days then 2 mg daily x2 days and then stop on 12/19. Patient is to have no anticoagulation. Arriaga was discontinued. Surgical drain was discontinued on postop day 3. Patient has postop restrictions of lifting nothing greater than 10 lb Hospital course: patient experienced postsurgical complications included left frontal headache, postop pain, dysarthria, cognitive decline, dizziness with sitting, hyperglycemia, hypertension, and constipation. Patient demonstrates a left pronator drift. Transfers are at Min assist. Patri gait is Min assist with a 2 wheeled walker. Lower extremity dressing is Min to moderate assistance. Bathing is Min to moderate assistance. Toileting is Min to moderate assistance. Grooming is setup. Eating a setup. Upper body dressing is minimal assistance. Therapy was initiated at the acute care facility and the patient transferred to us from [facility] on 12/15/2020 12/16/20 patient complains of incisional pain. Patient is on tramadol 100 mg and 50 mg p.r.n.. Will add Tylenol p.r.n.. Patient admits to urinary frequency and stress incontinence. Appetite is good. Patient voices no other complaints. review of morning labs reveal mild anemia, mild hyponatremia, mild transaminitis. Patient will require ongoing monitoring and repeat labs to be drawn on Friday. 12/17/20 Patient complains of temporal headache. Appetite is good. Patient admits to increase speech intelligibility. 12/18/20 Patient voices no complaints. Patient is seen during speech therapy. Patient is pleased with her overall progress Review of Systems Review of Systems: All systems reviewed & are unremarkable except as noted in HPI and below Functional Status Ambulation Ability Ability to Ambulate 10 Feet: Independent Ability to Ambulate 50 Feet With 2 Turns: Contact Guard Ability to Ambulate 150 Feet: Stand
[2020-12-18 15:00] VITALS: BMI 30.8
[2020-12-18] MEDS: polyethylene glycoL 3350 17 GM POWD.PACK PO (15:43)
--- NOTE | 2020-12-18 19:14 | RPD ---
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 The complexity of the patient's medical management, nursing, and therapy needs require an inpatient rehab hospital stay with a physician-led interdisciplinary team approach. The patient?s needs will be best met in an intensive program vs. at a lower level of care. The patient requires physician services for medical oversight and coordination of care. The patient needs physician monitoring and treatment of post-surgical complications to include left frontal headache, post-op pain, dizziness in sitting, hyperglycemia, hypertension, and constipation. The patient requires nursing services for frequent neuro checks, anticoagulation therapy, medication management and education, pressure relief and skin care management, monitoring of labs, bowel and bladder training, and fall/safety precautions. Deficits include:ADLs, Balance, Cognition, Endurance, Family Training/Education, Mobility, Pain Management, ROM, Safety, Speech, Strength, and Transfers. [id number] Programmer/Case Management for: Discharge Planning and Patient/Family Counseling Physical Therapy: 5 days per week for 90 minutes. Treatments may include: Therapeutic Exercise, Gait Training, Neuromuscular Re-education, Transfer Training, Community Reintegration, Bed Mobility, Patient/Family Education, Wheelchair Mobility Group Therapy/Concurrent Therapy Rationales: -Improve attention span during functional activities in a distracted environment. -Enhance problem solving and/or adequate judgment skills during functional activities in a distracted environment. -Promote increased safety awareness in a distracted environment to reduce fall risk with functional tasks, transfers, and ambulation to allow a more safe, self-sufficient return to the home environment. -Improve dynamic balance skills to promote safety and independence with functional activities in a distracted environment for maximum gain. Occupational Therapy: 5 days per week for 90 minutes. Treatments may include: Therapeutic Exercise, Therapeutic Activity, Cognitive Training, Self-Care Transfer Training, Community Reintegration, Home Management, Patient/Family Education, Wheelchair Mobility Training, Energy Conservation Training Group Therapy/Concurrent Therapy Rationales: -Allow therapist to observe and teach generalization and carry-over of skills learned in individual therapy. -Enhance problem solving and sequencing skills during therapeutic activities in a distracted environment. -Promote increased safety awareness in a realistic setting to reduce fall risk with functional tasks due to visual and verbal distractions. -Increase functional level with ADLs, ADL transfers and use of adaptive equipment through therapeutic activities with others while promoting safety to allow a more safe, self-sufficient return home. Medical Prognosis: Good Anticipated Length of Stay: 10 days Rehab Goals: Eating Goal: 06-Independent Oral Hygiene Goal: 06-Independent Toileting Hygiene Goal: 06-Independent Shower/Bathe Self Goal: 06-Independent Upper Body Dressing Goal: 06-Independent Lower Body Dressing Goal: 06-Independent Putting On/Taking Off Footwear Goal: 06-Independent Rolling Left and Right Goal: 06-Indep
--- NOTE | 2020-12-18 19:24 | RPD ---
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 Comorbidities include Osteoarthritis, pulmonary emphysema, stage IV lung adenocarcinoma with frontal and parietal lesion s/p SRS followed by radiation and concurrent chemotherapy which was completed January 2017, AERONAUTICAL INSPECTOR recurrence that was treated with WBRT in December 2017, increased size of right parietal lesion s/p MRI-guided stereotactic right parietal craniotomy and resection on 02/15/2020, multiple brain metastasis, hx malignant neoplasm of cervix/uterus, pulmonary emphysema, and TIA. The complexity of the patient's medical management, nursing, and therapy needs require an inpatient rehab hospital stay with a physician-led interdisciplinary team approach. The patient?s needs will be best met in an intensive program vs. at a lower level of care. The patient requires physician services for medical oversight and coordination of care. The patient needs physician monitoring and treatment of post-surgical complications to include left frontal headache, post-op pain, and dizziness in sitting, hyperglycemia, hypertension, and constipation. The patient requires nursing services for frequent neuro checks, anticoagulation therapy, medication management and education, pressure relief and skin care management, monitoring of labs, bowel and bladder training, and fall/safety precautions. Deficits include: ADLs, Balance, Cognition, Endurance, Family Training/Education, Mobility, Pain Management, ROM, Safety, Speech, Strength, and Transfers. Signal Mechanic/Case Management for: Discharge Planning and Patient/Family Counseling Physical Therapy: 5 days per week for 60 minutes. Treatments may include: Therapeutic Exercise, Gait Training, Neuromuscular Re-education, Transfer Training, Community Reintegration, Bed Mobility, Patient/Family Education, Wheelchair Mobility Group Therapy/Concurrent Therapy Rationales: -Improve attention span during functional activities in a distracted environment. -Enhance problem solving and/or adequate judgment skills during functional activities in a distracted environment. -Promote increased safety awareness in a distracted environment to reduce fall risk with functional tasks, transfers, and ambulation to allow a more safe, self-sufficient return to the home environment. -Improve dynamic balance skills to promote safety and independence with functional activities in a distracted environment for maximum gain. Occupational Therapy: 5 days per week for 60 minutes. Treatments may include: Therapeutic Exercise, Therapeutic Activity, Cognitive Training, Self-Care Transfer Training, Community Reintegration, Home Management, Patient/Family Education, Wheelchair Mobility Training, Energy Conservation Training Group Therapy/Concurrent Therapy Rationales: -Allow therapist to observe and teach generalization and carry-over of skills learned in individual therapy. -Enhance problem solving and sequencing skills during therapeutic activities in a distracted environment. -Promote increased safety awareness in a realistic setting to reduce fall risk with functional tasks due to visual and verbal distractions. -Increase functional level with ADLs, ADL transfers and use of adaptive equipment through therapeutic activities with others while promoting safety to allow a more safe, self-sufficient return home. Speech Therapy: 5 days per week for 60 minutes. Treatments may include: Dysphasia Therapy, Speech/Language/Communication Therapy, Cognitive Training, Patient/Family Education Group Therapy/Concurrent Therapy - Rationale: -Allow therapist to observe and teach generalization and carry-over of skills learned in individual therapy. -Improve comprehension skills with complex or abstract ideas throug
[2020-12-18 20:00] VITALS: PULSE 73; RESP 18; O2SAT 98
[2020-12-18 22:00] VITALS: BP 130/70; PULSE 62; RESP 14; TEMP 36.5; O2SAT 98
[2020-12-19 06:00] VITALS: BP 120/71; PULSE 56; RESP 14; TEMP 36.6; O2SAT 99
[2020-12-19] MEDS: levETIRAcetam 500 MG TABLET 1000 MG PO ×2 (07:38→21:22)
[2020-12-19] MEDS: polyethylene glycoL 3350 17 GM POWD.PACK PO (07:38)
[2020-12-19] MEDS: ROSUVASTATIN 5 MG TABLET PO (07:38)
[2020-12-19] MEDS: CHOLECALCIFEROL 1,000 UNITS TABLET 1000 UNITS BY MOUTH (07:38)
[2020-12-19] MEDS: ASCORBIC ACID 125 MG TABLET PO (07:38)
[2020-12-19] MEDS: MULTIVITAMINS THERAPEUTIC TAB (*BKC) 1 TABLET PO (07:38)
--- NOTE | 2020-12-19 09:44 | PCNSR ---
On 12/19/20, the student, Catie Bridges, provided care and completed [facility] documentation on this patient. I have reviewed the student's documentation and agree with the findings.
--- NOTE | 2020-12-19 10:44 | WPDNEURORHBP ---
Subjective Date/time seen: 12/19/20 10:44 Interval history: Chief Complaint: Left frontal tumor consistent with radiation necrosis status post left frontal craniotomy and resection on 12/12/[address] 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 This was followed by an episode of left arm weakness with imaging showing increased right parietal lesion status post MRI guided stereotactic right parietal craniotomy and resection on 02/15/2020. Patient presented to the emergency department at [facility] with complaints of acute onset of right-sided facial droop, slurred speech, expressive aphasia. Symptoms resolved. Imaging revealed increased size of left frontal lesion. Keppra was initiated and patient will remain on 1 g b.i.d. with seizure precautions. On 12/12/2020 the patient underwent an MRI guided stereotactic left frontal craniotomy and resection of left frontal tumor. Preliminary pathology consistent with radiation necrosis. Patient was placed on amlodipine 5 mg for blood pressure management with goals of systolic blood pressure less than 140. At time of transfer this was discontinued per my discussion with the hospitalist nurse practitioner. [phone] . I will continue to monitor the need of restarting the amlodipine. Patient is medically stable for discharge per Neurosurgery. Patient will be admitted to the rehab unit at [facility] on 12/15/2020 she will continue on a dexamethasone taper 2 mg b.i.d. x2 days then 2 mg daily x2 days and then stop on 12/19. Patient is to have no anticoagulation. Arriaga was discontinued. Surgical drain was discontinued on postop day 3. Patient has postop restrictions of lifting nothing greater than 10 lb Hospital course: patient experienced postsurgical complications included left frontal headache, postop pain, dysarthria, cognitive decline, dizziness with sitting, hyperglycemia, hypertension, and constipation. Patient demonstrates a left pronator drift. Transfers are at Min assist. Patri gait is Min assist with a 2 wheeled walker. Lower extremity dressing is Min to moderate assistance. Bathing is Min to moderate assistance. Toileting is Min to moderate assistance. Grooming is setup. Eating a setup. Upper body dressing is minimal assistance. Therapy was initiated at the acute care facility and the patient transferred to us from [facility] on 12/15/2020 12/16/20 patient complains of incisional pain. Patient is on tramadol 100 mg and 50 mg p.r.n.. Will add Tylenol p.r.n.. Patient admits to urinary frequency and stress incontinence. Appetite is good. Patient voices no other complaints. review of morning labs reveal mild anemia, mild hyponatremia, mild transaminitis. Patient will require ongoing monitoring and repeat labs to be drawn on Friday. 12/17/20 Patient complains of temporal headache. Appetite is good. Patient admits to increase speech intelligibility. 12/18/20 Patient voices no complaints. Patient is seen during speech therapy. Patient is pleased with her overall progress. 12/19/20 Patient voices no concerns patient is prepared for discharge on Friday. Patient has a doctor's follow-up on Friday afternoon. Patient is arranging for a ride. Team conference patient is independent with grooming and ADLs. Patient is to not lift anything greater than 10 lb.
[2020-12-19 13:22] VITALS: BP 126/76; PULSE 67; RESP 16; TEMP 36.5; O2SAT 99
[2020-12-19 22:00] VITALS: BP 114/65; PULSE 57; RESP 18; TEMP 35.7; O2SAT 99
[2020-12-20 06:00] VITALS: BP 120/71; PULSE 65; RESP 18; TEMP 35.8; O2SAT 97
[2020-12-20] MEDS: ASCORBIC ACID 125 MG TABLET PO (09:17)
[2020-12-20] MEDS: CHOLECALCIFEROL 1,000 UNITS TABLET 1000 UNITS BY MOUTH (09:17)
[2020-12-20] MEDS: levETIRAcetam 500 MG TABLET 1000 MG PO ×2 (09:17→21:16)
[2020-12-20] MEDS: MULTIVITAMINS THERAPEUTIC TAB (*BKC) 1 TABLET PO (09:17)
[2020-12-20] MEDS: ROSUVASTATIN 5 MG TABLET PO (09:17)
[2020-12-20] MEDS: polyethylene glycoL 3350 17 GM POWD.PACK PO (09:18)
[2020-12-20 13:32] VITALS: BP 106/61; PULSE 84; RESP 18; TEMP 36.1; O2SAT 97
--- NOTE | 2020-12-20 15:46 | WPDNEURORHBP ---
Subjective Date/time seen: 12/20/20 15:46 Interval history: Chief Complaint: Left frontal tumor consistent with radiation necrosis status post left frontal craniotomy and resection on 12/12/[address] 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 This was followed by an episode of left arm weakness with imaging showing increased right parietal lesion status post MRI guided stereotactic right parietal craniotomy and resection on 02/15/2020. Patient presented to the emergency department at [facility] with complaints of acute onset of right-sided facial droop, slurred speech, expressive aphasia. Symptoms resolved. Imaging revealed increased size of left frontal lesion. Keppra was initiated and patient will remain on 1 g b.i.d. with seizure precautions. On 12/12/2020 the patient underwent an MRI guided stereotactic left frontal craniotomy and resection of left frontal tumor. Preliminary pathology consistent with radiation necrosis. Patient was placed on amlodipine 5 mg for blood pressure management with goals of systolic blood pressure less than 140. At time of transfer this was discontinued per my discussion with the hospitalist nurse practitioner. [phone] . I will continue to monitor the need of restarting the amlodipine. Patient is medically stable for discharge per Neurosurgery. Patient will be admitted to the rehab unit at [facility] on 12/15/2020 she will continue on a dexamethasone taper 2 mg b.i.d. x2 days then 2 mg daily x2 days and then stop on 12/19. Patient is to have no anticoagulation. Ariraga was discontinued. Surgical drain was discontinued on postop day 3. Patient has postop restrictions of lifting nothing greater than 10 lb Hospital course: patient experienced postsurgical complications included left frontal headache, postop pain, dysarthria, cognitive decline, dizziness with sitting, hyperglycemia, hypertension, and constipation. Patient demonstrates a left pronator drift. Transfers are at Min assist. Patri gait is Min assist with a 2 wheeled walker. Lower extremity dressing is Min to moderate assistance. Bathing is Min to moderate assistance. Toileting is Min to moderate assistance. Grooming is setup. Eating a setup. Upper body dressing is minimal assistance. Therapy was initiated at the acute care facility and the patient transferred to us from [facility] on 12/15/2020 12/16/20 patient complains of incisional pain. Patient is on tramadol 100 mg and 50 mg p.r.n.. Will add Tylenol p.r.n.. Patient admits to urinary frequency and stress incontinence. Appetite is good. Patient voices no other complaints. review of morning labs reveal mild anemia, mild hyponatremia, mild transaminitis. Patient will require ongoing monitoring and repeat labs to be drawn on Friday. 12/17/20 Patient complains of temporal headache. Appetite is good. Patient admits to increase speech intelligibility. 12/18/20 Patient voices no complaints. Patient is seen during speech therapy. Patient is pleased with her overall progress. 12/19/20 Patient voices no concerns patient is prepared for discharge on Friday. Patient has a doctor's follow-up on Friday afternoon. Patient is arranging for a ride. Team conference patient is independent with grooming and ADLs. Patient is to not lift anything greater than 10 lb.
[2020-12-20 22:00] VITALS: BP 108/64; PULSE 63; RESP 16; TEMP 36.2; O2SAT 100
[2020-12-21 06:00] VITALS: BP 108/69; PULSE 64; RESP 16; TEMP 36.4; O2SAT 96
[2020-12-21] MEDS: MULTIVITAMINS THERAPEUTIC TAB (*BKC) 1 TABLET PO (07:27)
[2020-12-21] MEDS: CHOLECALCIFEROL 1,000 UNITS TABLET 1000 UNITS BY MOUTH (07:27)
[2020-12-21] MEDS: levETIRAcetam 500 MG TABLET 1000 MG PO ×2 (07:27→20:46)
[2020-12-21] MEDS: ASCORBIC ACID 125 MG TABLET PO (07:27)
[2020-12-21] MEDS: polyethylene glycoL 3350 17 GM POWD.PACK PO (07:28)
[2020-12-21] MEDS: ROSUVASTATIN 5 MG TABLET PO (07:28)
--- NOTE | 2020-12-21 11:52 | WPDNEURORHBP ---
Subjective Date/time seen: 12/21/20 11:52 Interval history: Chief Complaint: Left frontal tumor consistent with radiation necrosis status post left frontal craniotomy and resection on 12/12/[address] 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 This was followed by an episode of left arm weakness with imaging showing increased right parietal lesion status post MRI guided stereotactic right parietal craniotomy and resection on 02/15/2020. Patient presented to the emergency department at [facility] with complaints of acute onset of right-sided facial droop, slurred speech, expressive aphasia. Symptoms resolved. Imaging revealed increased size of left frontal lesion. Keppra was initiated and patient will remain on 1 g b.i.d. with seizure precautions. On 12/12/2020 the patient underwent an MRI guided stereotactic left frontal craniotomy and resection of left frontal tumor. Preliminary pathology consistent with radiation necrosis. Patient was placed on amlodipine 5 mg for blood pressure management with goals of systolic blood pressure less than 140. At time of transfer this was discontinued per my discussion with the hospitalist nurse practitioner. [phone] . I will continue to monitor the need of restarting the amlodipine. Patient is medically stable for discharge per Neurosurgery. Patient will be admitted to the rehab unit at [facility] on 12/15/2020 she will continue on a dexamethasone taper 2 mg b.i.d. x2 days then 2 mg daily x2 days and then stop on 12/19. Patient is to have no anticoagulation. Arriaga was discontinued. Surgical drain was discontinued on postop day 3. Patient has postop restrictions of lifting nothing greater than 10 lb Hospital course: patient experienced postsurgical complications included left frontal headache, postop pain, dysarthria, cognitive decline, dizziness with sitting, hyperglycemia, hypertension, and constipation. Patient demonstrates a left pronator drift. Transfers are at Min assist. Patri gait is Min assist with a 2 wheeled walker. Lower extremity dressing is Min to moderate assistance. Bathing is Min to moderate assistance. Toileting is Min to moderate assistance. Grooming is setup. Eating a setup. Upper body dressing is minimal assistance. Therapy was initiated at the acute care facility and the patient transferred to us from [facility] on 12/15/2020 12/16/20 patient complains of incisional pain. Patient is on tramadol 100 mg and 50 mg p.r.n.. Will add Tylenol p.r.n.. Patient admits to urinary frequency and stress incontinence. Appetite is good. Patient voices no other complaints. review of morning labs reveal mild anemia, mild hyponatremia, mild transaminitis. Patient will require ongoing monitoring and repeat labs to be drawn on Friday. 12/17/20 Patient complains of temporal headache. Appetite is good. Patient admits to increase speech intelligibility. 12/18/20 Patient voices no complaints. Patient is seen during speech therapy. Patient is pleased with her overall progress. 12/19/20 Patient voices no concerns patient is prepared for discharge on Friday. Patient has a doctor's follow-up on Friday afternoon. Patient is arranging for a ride. Team conference patient is independent with grooming and ADLs. Patient is to not lift anything greater than 10 lb. However patient needs constant safety cues to decreased speed and she has occasional scis
[2020-12-21 14:00] VITALS: BP 104/52; PULSE 81; RESP 97; TEMP 36.6; O2SAT 18
[2020-12-21 22:00] VITALS: BP 136/68; PULSE 67; RESP 18; TEMP 36.2; O2SAT 94
[2020-12-22 06:00] VITALS: BP 109/57; PULSE 69; RESP 18; TEMP 35.8; O2SAT 98
[2020-12-22] MEDS: ROSUVASTATIN 5 MG TABLET PO (08:25)
[2020-12-22] MEDS: CHOLECALCIFEROL 1,000 UNITS TABLET 1000 UNITS BY MOUTH (08:25)
[2020-12-22] MEDS: ASCORBIC ACID 125 MG TABLET PO (08:25)
[2020-12-22] MEDS: MULTIVITAMINS THERAPEUTIC TAB (*BKC) 1 TABLET PO (08:25)
[2020-12-22] MEDS: levETIRAcetam 500 MG TABLET 1000 MG PO (08:26)
--- NOTE | 2020-12-22 08:49 | PM.DS ---
DS: Admitting Diagnosis Admitting Diagnosis Admitting Diagnosis: left frontal tumor status post craniotomy DS: Discharge Diagnosis Discharge Diagnosis (1) Metastatic cancer to brain: Code(s): C79.31 - Secondary malignant neoplasm of brain Status: Acute Assessment and Plan: Status post craniotomy (2) Non-small cell cancer of left lung: Code(s): C34.92 - Malignant neoplasm of unspecified part of left bronchus or lung Status: Acute Assessment and Plan: Her medical oncologist is Dr. Schilling from [place]. Radiation oncologists is Rivera Fleming (3) TIA (transient ischemic attack): Code(s): G45.9 - Transient cerebral ischemic attack, unspecified Status: Acute Assessment and Plan: monoitor (4) Pleural thickening: Code(s): J92.9 - Pleural plaque without asbestos Status: Acute Assessment and Plan: monitor (5) Positional vertigo: Status: Acute Assessment and Plan: PT and OT will continue to work on balance with also vertigo corrective exercises (6) Impingement syndrome of left shoulder: Code(s): M75.42 - Impingement syndrome of left shoulder Status: Acute Assessment and Plan: monitor. Currently is not impairing any functional process (7) COVID-19 vaccine series completed: Code(s): Z92.29 - Personal history of other drug therapy Status: Acute (8) Cervical radiculopathy: Code(s): M54.12 - Radiculopathy, cervical region Status: Acute Assessment and Plan: Patient at times has pain to the left upper extremity. (9) Left arm weakness: Code(s): R29.898 - Other symptoms and signs involving the musculoskeletal system Status: Acute Assessment and Plan: Prior to this surgery. (10) Vaccine counseling: Code(s): Z71.89 - Other specified counseling Status: Acute (11) intermediate card tender use of drug: Code(s): Z79.899 - Other fdc (current) drug therapy Status: Acute (12) Obesity (BMI 30.0-34.9): Code(s): E66.9 - Obesity, unspecified Status: Acute Assessment and Plan: Weight reduction will be discussed. (13) Trochanteric bursitis: Qualifiers: Laterality: left Qualified Code(s): M70.62 - Trochanteric bursitis, left hip Code(s): M70.60 - Trochanteric bursitis, unspecified hip Status: Acute Assessment and Plan: monitor (14) UTI (urinary tract infection): Code(s): N39.0 - Urinary tract infection, site not specified Status: Acute Assessment and Plan: patient currently has no urinary tract infection (15) S/P craniotomy: Code(s): Z98.890 - Other specified postprocedural states Status: Acute Assessment and Plan: Lifting no greater than 10 lb. Dressing changes per Neurosurgery. follow-up with Dr. Clarke. Biopsy is pending (16) BPPV (benign paroxysmal positional vertigo): Code(s): H81.10 - Benign paroxysmal vertigo, unspecified ear Status: Acute Assessment and Plan: monitor and continue to challenge in therapy (17) Colon cancer screening: Code(s): Z12.11 - Encounter for screening for malignant neoplasm of colon Status: Acute (18) Post-menopausal: Code(s): Z78.0 - Asymptomatic menopausal state Status: Acute (19) Cerebrovascular accident (CVA): Code(s): I63.9 - Cerebral infarction, unspecified Status: Acute Assessment and Plan: monitor (20) Former tobacco use: Code(s): Z87.891 - Personal history of nicotine dependence Status: Acute (21) Hearing loss: Qualifiers: Hearing loss type: unspecified Laterality: right Qualified Code(s): H91.91 - Unspecified hearing loss, right ear Code(s): H91.90 - Unspecified hearing loss, unspecified ear Status: Acute Assessment and Plan: patient has hearing aids (22) Hx of cervical cancer: Code(s):
== END 2020-12-22 08:35 | disposition home health service (06) | DRG 949 ==
PROVIDERS: Admitting Provider Physical Medicine & Rehabilitation; PCP Internal Medicine; Visit Provider Physical Medicine & Rehabilitation
DX: Z48.811 Encounter for surgical aftercare following surgery on the nervous system (principal); I67.89 Other cerebrovascular disease; C79.31 Secondary malignant neoplasm of brain; C34.92 Malignant neoplasm of unspecified part of left bronchus or lung; E87.1 Hypo-osmolality and hyponatremia; R47.1 Dysarthria and anarthria; J43.8 Other emphysema; M54.12 Radiculopathy, cervical region; E66.9 Obesity, unspecified; N39.3 Stress incontinence (female) (male); H91.91 Unspecified hearing loss, right ear; J92.9 Pleural plaque without asbestos; R35.0 Frequency of micturition; Z87.891 Personal history of nicotine dependence; Z79.899 Other long term (current) drug therapy; Z92.21 Personal history of antineoplastic chemotherapy; Z85.41 Personal history of malignant neoplasm of cervix uteri; Z86.73 Personal history of transient ischemic attack (TIA), and cerebral infarction without residual deficits; Z68.30 Body mass index [BMI] 30.0-30.9, adult
CPT/HCPCS: 36415; 80053; 85025; 92507; 92523; 97110; 97116; 97129; 97130; 97163; 97165; 97530; 97535; A9270; J8540

== ENCOUNTER 2021-06-12 14:01 | Outpatient (RCR) | payer OTHER, SELFPAY ==
--- NOTE | 2021-06-12 15:44 | STOPEVAL ---
Thank you for referring Yomaira Ware to [facility].? Attending Provider: Clif James MD Evaluation Information Problem Diagnosis Phonemic Paraphasias Onset 12/27 Cause s/p frontal lobe tumor with craniotomy, 12/27 Additional Evaluation Detail Patient reports brain surgery in December 2020. When asked if this were due to blood clot or tumor, patient reported, Actually they don't tell you what's going on. Review of patient's notes from December 2020 stay at the [facility] here [facility] revealed history of s /p frontal lobe tumor with craniotomy. Subjective Information Patient states the only reason Query Text:As Reported By Patient/ she thinks she is here today Family because her words get fumbled . She reports she feels she can be doing well and then when going to talk to someone, her words get fumbled. Diagnostic Tests X-Rays For This Problem No MRI For This Problem No Other Tests For This Problem No Previous Treatments Previous Treatments For This Problem Denies any direct Speech Therapy since hospitalization at [facility]. Pain Assessment Timing of Pain Assessment Timing of Pain Assessment Assessment Self Report Self Report Pain Level 0 Pain Score Pain Score 0: Self Report Cognitive Evaluation Orientation/Memory Assessment Immediate Memory 70 Query Text:% Accuracy Recent Memory 90 Query Text:% Accuracy Prospective Memory 100 Query Text:% Accuracy Temporal Orientation 90 Query Text:% Accuracy Spatial/Environmental Orientation 100 Query Text:% Accuracy Overall Orientation and Memory Mild Deficits Orientation/Memory Comments Most difficult for patient was repeating lengthy number series. She dropped one item on the complex verbal direction but stated she has hearing issues and did not remember hearing the specific word in the complex direction therapist gave. Problem Solving Simple Problem Solving: Percent of 100
== END 2021-06-13 09:26 | disposition home or self-care (01) ==
LOC: ANHST 14:01
PROVIDERS: PCP Internal Medicine; Visit Provider Internal Medicine
DX: F80.0 Phonological disorder (principal)
CPT/HCPCS: 92523

== ENCOUNTER 2022-01-29 10:55 | Outpatient (CLI) | payer OTHER, SELFPAY ==
--- NOTE | ~2022-01-29 | CT_ITS ---
EXAMINATION: CT chest high resolution wo ny DATE: 01/29/2022 11:23 INDICATION: History of lung cancer TECHNIQUE: Computed tomography (CT) of the chest was performed without intravenous contrast. The dose -length product (DLP) was 165.45 mGy-cm. Automated exposure control and iterative reconstruction tech nique were employed. COMPARISON: 06/05/2017 FINDINGS: Again seen are chronic, stable airspace opacities and volume loss with associated bronchiec tasis in the left upper lobe. There is a stable 4 mm nodule in the right middle lobe. There is also a stable 2.2 cm groundglass nodule without solid component in the right upper lobe. There is a 6 mm gr oundglass nodule of the left lower lobe on image 68 without but no solid component. No pleural effusi on or pneumothorax. There is moderate emphysema. No pathologically enlarged thoracic lymph nodes are identified. The heart size is normal. Calcified coronary artery atherosclerosis is noted. There is a 7.1 cm cyst of the right hepatic lobe. There is moderate thoracic spondylosis. IMPRESSION: 1. Stable left upper lobe airspace opacities, volume loss, and bronchiectasis, consistent with treate d malignancy. 2. Stable right lung nodules. 3. 6 mm groundglass nodule of the left lower lobe. Follow-up CT in 12 months is recommended. Reviewed, dictated and finalized at location B. IMPRESSION: 1. Stable left upper lobe airspace opacities, volume loss, and bronchiectasis, consistent with treated malignancy. 2. Stable right lung nodules. 3. 6 mm groundglass nodule of the left lower lobe. Follow-up CT in 12 months is recommended.
== END 2022-01-29 10:56 | disposition home or self-care (01) ==
PROVIDERS: PCP Internal Medicine; Visit Provider Internal Medicine
DX: R93.89 Abnormal findings on diagnostic imaging of other specified body structures (principal); R91.8 Other nonspecific abnormal finding of lung field; J47.9 Bronchiectasis, uncomplicated
CPT/HCPCS: 71250

== ENCOUNTER 2023-02-22 09:10 | Emergency (ER) | payer OTHER, SELFPAY ==
--- NOTE | ~2023-02-22 | CT_ITS ---
EXAMINATION: CT cervical spine wo con DATE: 02/22/2023 09:33 INDICATION: Fall. Head and neck injury. TECHNIQUE: Computed tomography (CT) of the cervical spine was performed without intravenous contrast. Automated exposure control and iterative reconstruction technique were employed. Exam dose: 346.29 mGy-cm total exam DLP. COMPARISON: None FINDINGS: There is straightening of the cervical spine which may be due to muscle spasm and/or positi oning. C1 and C2 are normally aligned and the odontoid process is intact. No fracture or dislocation or lock ed facet or prevertebral soft tissue swelling. There is moderate degenerative disc disease at C4-5 and C5-6. There is degenerative change and the ap ophyseal joints. Uncovertebral joint spurring is noted in the mid and lower cervical spine. Abnormal prominent apical soft tissue thickening on the left.. IMPRESSION: Straightening of the cervical spine Moderate cervical spondylosis; no fracture or dislocation or locked facet Reviewed, dictated and finalized at [facility]. Reviewed, dictated and finalized at [facility].
--- NOTE | ~2023-02-22 | CT_ITS ---
EXAMINATION: CT brain wo con DATE: 02/22/2023 09:33 INDICATION: Fall. Head injury. TECHNIQUE: Computed tomography (CT) of the head was performed without intravenous contrast. The mA wa s adjusted according to patient size. Iterative reconstruction technique was employed. Exam dose: 83 2.33 mGy-cm total exam DLP. COMPARISON: September 25, 2016 MRI brain, MRA brain FINDINGS: Status post right posterior parietal and left temporal parietal craniotomy, with bone flaps secured by plates and screws. There is prominent nonspecific diminished attenuation of the cerebral white matter. Cerebral atherosc lerosis. Moderate central and cortical cerebral and cerebellar volume loss. No intracranial mass lesion or hemorrhage, midline shift or mass effect or subdural or epidural hemat niesha is detected. Prominent soft tissue thickening of the left sphenoid sinus, anteromedial left maxillary sinus soft t issue thickening. No fracture or bone destruction of the cranial vault is detected. IMPRESSION: Status post bilateral craniotomy Nonspecific prominent diminished attenuation of the cerebral white matter Cerebral atherosclerosis No acute intracranial finding or hemorrhage is noted Reviewed, dictated and finalized at [facility]. Reviewed, dictated and finalized at [facility].
[2023-02-22 09:11] VITALS: BP 134/82; PULSE 70; RESP 18; TEMP 36.4; O2SAT 98
--- NOTE | 2023-02-22 09:16 | ED.FALL ---
HPI - Fall General Chief Complaint: Fall Stated Complaint: FALL/ HEAD LAC Time Seen by Provider: 02/22/23 09:15 Source: patient Mode of arrival: EMS Limitations: no limitations History of Present Illness HPI Narrative: Patient is a very pleasant 77-year-old female with a past medical history of dyslipidemia, lung nodule, pulmonary emphysema who presents emergency department today via EMS after she had a fall. Patient states that she needs a new mattress. She states that she just rolled on her side and then fell out of bed striking her head on her nightstand. She states she was not able to get up after that. She did not lose any consciousness. Patient is unsure of her last tetanus. Currently patient is complaining of no symptoms. she states her neck is sore but thinks it is from the pillow. She denies any sharp severe neck pain, visual disturbances, dizziness, headache, nausea, vomiting, numbness or tingling of extremities, back pain, chest pain, shortness a breath, or any other symptoms. Related Data Home Medications Medication Instructions Recorded Confirmed ascorbic acid (vitamin C) 100 mg 100 mg PO DAILY 02/18/20 03/26/22 tablet (Vitamin C) cholecalciferol (vitamin D3) 1,000 unit BYMOUTH DAILY 12/15/20 03/26/22 aspirin 81 mg capsule 81 mg PO DAILY 02/19/21 03/26/22 Allergies Allergy/AdvReac Type Severity Reaction Status Date / Time No Known Allergies Allergy Verified 02/22/23 09:21 Review of Systems Review of Systems: CONSTITUTIONAL: Denies fever, chills, or sweats. EYES: Denies visual changes, redness, or discharge. ENT: head injury from fall. Denies rhinorrhea, congestion, sore throat, or otalgia. NECK: generalized soreness from-no sharp pain CARDIOVASCULAR: Denies chest pain, palpitations, or edema. RESPIRATORY: Denies cough or dyspnea. GASTROINTESTINAL: Denies abdominal pain, nausea, vomiting, or diarrhea. GENITOURINARY: Denies dysuria or hematuria. SKIN: +laceration and abrasion to forehead. Denies rash or itching. MUSCULOSKELETAL: Denies back pain, joint pain, or myalgia. NEUROLOGIC: Denies headache, numbness, or weakness. PSYCHIATRIC: Denies anxiety or depression. All systems reviewed & are unremarkable except as noted in HPI and below PMFSH Past Medical History Medical History Dyslipidemia History of chemotherapy History of radiation exposure Malignant neoplasm of upper lobe, left bronchus or lung Pulmonary emphysema Surgical History Surgical History H/O craniotomy H/O: hysterectomy Family History Family History Mother Family history of malignant neoplasm of cervix Son Diabetes mellitus Sibling Skin cancer Alzheimer disease Carcinoma of colon Social History Social History Social History: former smoker of approximately 20 years. Quit in 1996. Occasional alcohol use. Denies illicit drug use. Patient lives alone in a single level home with 5 steps to enter. Prior to this patient was completely independent. Patient's goals are to return home. Patient states friends and family will be able to assist if necessary. Smoking packs per day: 1.5 Smoking cigarettes per day: 30.0 Smoking status: Former smoker Tobacco type: cigarettes Second hand tobacco smoke exposure: No Smoking end date: 06/09/97 Additional smoking assessment comments: smoked pack and half 25 years ago Alcohol intake: former Drinks per week: 2 Alcohol use details: 2X MONTH Substance use: never Substance use type: does not use Living arrangements: alone Gender identity (if verbalized by the patient): Female Sexual Orientation (if Verbalized by the Patient): Straight or Heterosexual Spiritual care concerns: No Exam Narrative: GENERAL: Well-appearing elder
--- NOTE | 2023-02-22 09:19 | ECG_ITS ---
Measurements Intervals [place] Rate: 68 P: 69 CO: 196 QRS: 41 QRSD: 98 T: 82 QT: 397 QTc: 422 Interpretive Statements SINUS RHYTHM DELAYED PRECORDIAL R/S TRANSITION CANTERIOR INFARCT, AGE INDETERMINATE NONSPECIFIC T-WAVE ABNORMALITY- HIGH LATERAL LEADS BASELINE ARTIFACT- III, V4 ABNORMAL ECG NO PREVIOUS ECG AVAILABLE FOR COMPARISON Electronically Signed On 02-22-2023 16:53:23 CDT by Tom Mares D.O.
[2023-02-22 09:30] VITALS: BP 136/78; PULSE 69; RESP 13; O2SAT 98
[2023-02-22] MEDS: TETANUS,DIPHTHERIA,AC PERTUSSIS ADULT (0.5 ML) BOOSTRIX IM (10:26)
[2023-02-22] MEDS: ACETAMINOPHEN 500 MG TABLET 1000 MG PO (10:26)
[2023-02-22 12:19] VITALS: BP 135/79; PULSE 82; RESP 18; TEMP 36.6; O2SAT 98
== END 2023-02-22 12:21 | disposition home or self-care (01) ==
PROVIDERS: Emergency Provider Nurse Practitioner; PCP Family Medicine
DX: S01.81XA Laceration without foreign body of other part of head, initial encounter (principal); Z23 Encounter for immunization; Z87.891 Personal history of nicotine dependence; Z85.118 Personal history of other malignant neoplasm of bronchus and lung; J43.9 Emphysema, unspecified; W06.XXXA Fall from bed, initial encounter
CPT/HCPCS: 70450; 72125; 90471; 90715; 93005; 99284; A9270